=== PATIENT | female | born 1965 | race African-American/Black ===

== ENCOUNTER 2017-03-04 19:49 | Emergency (ER) | payer OTHER ==
[~2017-03-04] VITALS: Ht 162.6 cm; Wt 128.8 kg
[~2017-03-04 19:49] MED LIST: 5-HTP100 MG PO; ACIDOPHILUS1 EAC3 PO; ALIGN4 MG PO; AMBIEN 5 MG TABL5 M1 PO; AMOXICILLIN/POTASSIU PO; ANASPAZ0.125 MG SL; ANTACID600 MG PO; APAP500 PO; ATENOLOL 50 MG50 M1 PO; AUGMENTIN 500-1 EACH PO; BENADRYL25 MG PO; CARDIO TEA1 EACH PO; CHROMIUM PIC1000 MCG PO; CIPROFLOXACIN250 M2 PO; CO Q-10100 MG PO; CYCLOBENZAPRINE10 MG; FLAGYL 250 MG250 MG PO; FLECAINIDE ACET50 M1 PO; FLEXERIL PO; FLORANEX TABLE1 EACH PO; FOLIC ACID XTR0.8 MG PO; GUAIFENESIN-CODE5 ML PO; HYDROCHLOROTHIA25 M1 PO; HYDROXYZINE HCL25 M2 PO; IBUPROFEN 800800 M1 PO; INDOMETHACIN 2525 MG PO; KLOR-CON 1010 MEQ PO; L-LYSINE500 M1 PO; LASIX 20 MG TAB20 MG PO; LISINOPRIL10 MG PO; LOVENOX SQ; METFORMIN HCL500 MG PO; MULTIVITAMINS1 EAC7 PO; NAPROSYN500 MG PO; NORCO 5-325 TA1 EACH PO; OMEGA-3 FISH1000 M1 PO; ONDANSETRON HCL4 M2 PO; OXYCONTIN; PERCOCET 5-3251 EACH PO; PERCOCET 7.5-31 EACH PO; PRAVACHOL 20 MG20 M1 PO; PRAVACHOL40 MG PO; PRAVASTATIN SOD20 MG PO; PREDNISONE50 MG PO; PROTONIX40 MG PO; SIMETHICON CHEW80 M1 PO; THYTROPHIN PMG PO; VITAMIN B-12500 MCG PO; VITAMIN D-32000 UNIT PO; ZANTAC 150MG T150 MG PO; ZOFRAN ODT4 MG PO; ZOFRAN4 MG PO; ZOVIRAX 5% CR2 G1 TP; ZPAK PO
== END 2017-03-04 20:56 | disposition home or self-care (01) ==
LOC: ER 19:49
DX: J34.89 Other specified disorders of nose and nasal sinuses (principal); R09.81 Nasal congestion; G51.0 Bell's palsy; Z86.73 Personal history of transient ischemic attack (TIA), and cerebral infarction without residual deficits; Z86.718 Personal history of other venous thrombosis and embolism; Z85.038 Personal history of other malignant neoplasm of large intestine; I10 Essential (primary) hypertension; E11.9 Type 2 diabetes mellitus without complications; E66.9 Obesity, unspecified; Z88.1 Allergy status to other antibiotic agents; Z88.5 Allergy status to narcotic agent; Z91.048 Other nonmedicinal substance allergy status

== ENCOUNTER → 2017-03-12 | Outpatient (CLI) | payer OTHER | LOC: RAD 17:12 | DX: K59.00 Constipation, unspecified (principal) ==

== ENCOUNTER → 2017-03-16 | Outpatient (CLI) | payer OTHER | LOC: RAD 08:44 | DX: K59.00 Constipation, unspecified (principal); R10.9 Unspecified abdominal pain ==

== ENCOUNTER → 2017-06-06 | Outpatient (CLI) | payer OTHER | LOC: ULTRA 15:23 | DX: M79.89 Other specified soft tissue disorders (principal); M79.661 Pain in right lower leg ==

== ENCOUNTER → 2017-10-10 | Outpatient (CLI) | payer OTHER | LOC: CAT 06:33 | DX: N28.1 Cyst of kidney, acquired (principal); R16.1 Splenomegaly, not elsewhere classified; K57.92 Diverticulitis of intestine, part unspecified, without perforation or abscess without bleeding ==

== ENCOUNTER → 2017-12-14 | Outpatient (CLI) | payer OTHER ==
[~2017-12-14] MED LIST changes: +GLUCOTROL5 MG PO; +LEVSIN0.125 MG PO; +LIPITOR10 MG PO; +OMEPRAZOLE 20 M20 M1 PO; +PERCOCET PO; +PRADAXA150 MG PO; +PROAIR HFA8.5 GM INH; +TRAMADOL 50 MG50 MG PO; +VENTOLIN HFA 1818 GM INH; +ZOFRAN ODT4 MG DISSOLVE
== END ==
LOC: CAT 09:05
DX: N28.1 Cyst of kidney, acquired (principal); R16.1 Splenomegaly, not elsewhere classified; E77.8 Other disorders of glycoprotein metabolism; D69.6 Thrombocytopenia, unspecified; Z85.038 Personal history of other malignant neoplasm of large intestine

== ENCOUNTER → 2017-12-21 | Outpatient (CLI) | payer OTHER ==
[~2017-12-21] VITALS: Ht 165.1 cm; Wt 98.9 kg
--- NOTE | ~2017-12-21 | P ---
[facility] [place] [address] PROCEDURE REPORT Name: BORA LOCK Room #: REG [facility].#: [id number] Admission: 12/21/17 Attend Phys: Gurpreet Godfrey Discharge: Date of : 67 Report #: [id number] THIS REPORT FOR: //name// CC: Gurpreet Earl MD DATE OF SERVICE: 12/21/2017 HISTORY OF PRESENT ILLNESS: The patient is a 52-year-old female who is well known to me with previous history of colon cancer, status post resection many years ago. The patient was seen in the office on 12/04/2017 with complaints of abdominal pain. This is primarily lower, this has been ongoing for a long period of time. She underwent a CT scan of her abdomen and pelvis on 10/10/2017, which showed a normal bowel pattern. CT, however, showed the liver was somewhat small in size, the spleen was enlarged, and numerous venous structures surrounding the stomach and spleen extending to the region of the esophagus consistent with esophageal varices noted. The patient has no previous history of known liver disease. She denies any significant alcohol use. We underwent lab testing including liver function tests, which were all normal. KASI, antismooth muscle antibody, hepatitis B, hepatitis C, all negative. Ceruloplasmin was normal. Ferritin level was normal at 52. She has had no history of GI bleed. Plan is for EGD today. DESCRIPTION OF PROCEDURE: The risks and benefits of the procedure were explained to the patient, those risks including, but not limited to bleeding, perforation, the risk of sedation. She understood these risks and gave informed consent. Sedation was given using propofol per anesthesia. Next, using a standard [employer] upper endoscope, the scope was placed in the patient's mouth and advanced under direct vision through the esophagus, stomach and into the second portion of the duodenum. The larynx was normal in appearance. The upper esophagus was normal. In the mid to distal esophagus, grade 1 esophageal varices were noted. There was no stigmata of bleeding. The GE junction was normal. In the stomach, there were changes consistent with portal hypertensive gastropathy in the fundus and body. In the antrum, there was a significant gastritis with several ulcerations. These were superficial clean white based ulcers. They range in size from 3-6 mm, no active bleeding. Biopsies were obtained to rule out H. pylori. The pylorus was normal and patent. The duodenal bulb, first and second portion were all normal. The scope was then withdrawn and the procedure terminated. The patient tolerated the procedure well. IMPRESSION: 1. Gastric antral ulcerations with gastritis. [address] [address] PROCEDURE REPORT Name: BORA LOCK Room #: REG CLI Jeancarlos#: [id number] Admission: 12/21/17 Attend Phys: Gurpreet Godfrey Discharge: Date of : 67 Report #: [id number] 2. Portal hypertensive gastropathy changes. 3. Grade 1 mild esophageal varices. No stigmata of bleeding. RECOMMENDATIONS: 1. Await biopsy results. 2. We will start PPI therapy and continue Levsin on a p.r.n. basis for her intermittent abdominal pain. 3. The plan is to discuss proceeding with a liver biopsy. Thank you for allowing me to participate in her care. <ELECTRONICALLY SIGNED> By: Gurpreet Ruiz MD 12/24/17 1407 1103 1953 Gurpreet Ruiz MD /nt
--- NOTE | ~2017-12-21 | S ---
[facility] [place] [address] SURGICAL PATH RPT PROCEDURE Name: TATE CAMPOS Room #: REG [facility]#: [id number] Admission: 12/21/17 Date of : 67 Discharge: Report #: [id number] Path Case #: [id number] PATHOLOGY REPORT COLLECTION DATE: 12/21/2017 RECEIVED DATE: 12/21/2017 SUBMITTING PHYS: Dr. Gurpreet Ruiz OTHER PHYS: Charlotte Holland Dr. SPECIMEN(S) RECEIVED: A.Gastritis biopsy * * * * * * * * * * * * FINAL DIAGNOSIS: Gastritic mucosa, gastritis rule out H. pylori, endoscopic biopsy: - Moderate reactive gastropathy. - Negative for intestinal metaplasia or atrophy. - Negative for Helicobacter pylori. COMMENT: Well controlled Helicobacter pylori immunohistochemical stain performed on block A1-negative. (IUV:selene; 12/24/2017) PATHOLOGIST: Crystal Perez M.D. REPORT ELECTRONICALLY SIGNED BY: Crystal Perez M.D. DATE/TIME: 12/24/2017 13:33 * * * * * * * * * * * * GROSS PATHOLOGY: The specimen is received in formalin, labeled "Tate Campos, gastritis rule out H. pylori," and consists of 3 fragments of starks soft tissue measuring between 0.4 x 0.2 x 0.1 cm and 0.2 x 0.2 x 0.1 cm. They are entirely submitted in cassette A1. (SDY; 12/21/2017) CLINICAL HISTORY: Abdominal pain, abnormal CT scan Gastritis, gastric ulcers, esophageal varices grade 1 Rule out H. pylori INITIAL CPT CODE(S): A; 66663, 35637 Professional services performed by [email or web address] at [facility] [address] [place] [address] SURGICAL PATH RPT PROCEDURE Name: TATE CAMPOS Room #: REG KEE Arshad#: [id number] Admission: 12/21/17 Date of : 67 Discharge: Report #: [id number] Path Case #: [id number] [address], [place] [address] Technical services performed by [email or web address] at [address] [place] [address], [facility] [address] [address]. [place] [address] PHONE: [phone] DIRECTOR: Wilder Jiménez M.D. * * * END OF REPORT * * *
== END | disposition home or self-care (01) ==
LOC: GI
DX: K29.60 Other gastritis without bleeding (principal); K25.9 Gastric ulcer, unspecified as acute or chronic, without hemorrhage or perforation; K31.89 Other diseases of stomach and duodenum; I85.00 Esophageal varices without bleeding; K76.6 Portal hypertension; I10 Essential (primary) hypertension; E11.9 Type 2 diabetes mellitus without complications; E78.5 Hyperlipidemia, unspecified; G47.33 Obstructive sleep apnea (adult) (pediatric); Z85.038 Personal history of other malignant neoplasm of large intestine; Z98.0 Intestinal bypass and anastomosis status; Z98.890 Other specified postprocedural states; E66.09 Other obesity due to excess calories; Z86.73 Personal history of transient ischemic attack (TIA), and cerebral infarction without residual deficits; Z90.49 Acquired absence of other specified parts of digestive tract; Z79.899 Other long term (current) drug therapy; Z88.6 Allergy status to analgesic agent; Z88.8 Allergy status to other drugs, medicaments and biological substances; Z68.36 Body mass index [BMI] 36.0-36.9, adult
CPT/HCPCS: 62110

== ENCOUNTER 2018-01-09 05:55 | Inpatient (IN) | payer OTHER ==
[2018-01-09] VITALS (13 sets, daily range): BP systolic 99–145; BP diastolic 52–87
[~2018-01-09] VITALS: Ht 165.1 cm; Wt 103.4 kg
--- NOTE | ~2018-01-09 | HC ---
[facility] [place] [address] CONSULTATION Name: BORA LOKC Room #: 210-P [facility] IN M.R.#: [id number] Admission: 01/09/18 Attend Phys: Panda Quintero MD Discharge: 01/11/18 Date of : 67 Report #: [id number] THIS REPORT FOR: //name// CC: Gurpreet Earl MD DATE OF SERVICE: 01/10/2018 PATIENT OF: Dr. Jairo Earl, Dr. Gurpreet Ruiz, and Dr. Jamee Pelayo. CHIEF COMPLAINT: This is a very pleasant 52-year-old -[place] female whom I am asked to evaluate for symptoms of a subcapsular hematoma following liver biopsy done on 01/09/2018. The patient developed abdominal discomfort after the liver biopsy that was performed on an outpatient basis. This pain persisted and a followup CT scan of the abdomen showed development of a small subcapsular hematoma. Nonetheless, the patient was so uncomfortable, she had to be admitted to the hospital for analgesia and monitoring of her hemoglobin. Today, she is still having some abdominal discomfort, but has been able to eat. Her creatinine is noted to have risen from 0.9 on January 09 to 1.9 on January 10 , therefore she will be held overnight until we get her well hydrated and this creatinine returns to normal. PAST MEDICAL HISTORY: Significant for colon cancer in 2008 and she had that resected. She also has a history of possible prediabetes and has been on metformin for that. She has a history of thrombocytopenia and leukopenia of uncertain etiology. On recent abdominal imaging, her liver was noted to be quite small. She has never been an alcohol drinker and has no other known risk factors for possible cirrhosis. Nonetheless, further workup led to a liver biopsy, pathology of which is pending. She has a history of essential hypertension, diverticulitis, hyperlipidemia, and blood clots. PAST SURGICAL HISTORY: Significant for the colon cancer resection, she has had a cholecystectomy, surgery for a tubal , ruptured ovarian cyst and appendectomy and she had ureteral stents placed bilaterally during one of those surgeries. ALLERGIES: To MORPHINE. CURRENT MEDICATIONS: Prior to admission included tacrolimus ointment, betamethasone dipropionate topical cream 0.05%, hydroxyzine, atorvastatin, [address] [address] CONSULTATION Name: BORA LOCK Room #: 210-P [facility] IN M.R.#: [id number] Admission: 01/09/18 Attend Phys: Panda Quintero MD Discharge: 01/11/18 Date of : 67 Report #: [id number] Klor-Con, glipizide, lisinopril, Lasix, and metformin. SOCIAL HISTORY: She does not drink alcohol. She has never been a cigarette smoker. FAMILY HISTORY: Negative for colon cancer. REVIEW OF SYSTEMS: She denies any dysphagia, odynophagia, gastroesophageal reflux, hiatal hernia, peptic ulcer disease, nausea, or vomiting. She denies any hematemesis, hematochezia, or melena. She does have pain in the right upper quadrant near the site of the biopsy. She denies any change in bowel habits, but does have diarrhea, probably related to her metformin. PHYSICAL EXAMINATION: GENERAL: Reveals a well-developed, well-nourished 52-year-old -[place] female who is in some mild distress because of abdominal discomfort, but who is awake, alert, pleasant to talk and oriented x4. HEART: Rate and rhythm are regular with a normal S1 and S2. LUNGS: Clear bilaterally. Deep breath do increase her abdominal pain slightly. ABDOMEN: Soft. Bowel sounds are present in all 4 quadrants. There is no palpable organomegaly or mass. There is no tenderness to palpation except in the right upper quadrant. There is some mild tenderness to deep palpation. There is no rebound or guarding. EXTREMITIES: Warm and dry. No peripheral cyanosis, clubbing, or edema. NEUROLOGIC: She appears grossly intact without lateralizing signs, although I did not test her extensively neurologically. SIGNIFICANT LABORATORY DATA: A recent EGD done by Dr. Ruiz on 12/21/2017, revealed biopsies of the stomach that showed moderate reactive gastropathy, negative for intestinal metaplasia or atrophy, it was negative for Helicobacter pylori. Recent labs done in November of this year showed a total protein of 6.1, albumin 3.7, total bilirubin 0.9, direct bilirubin 0.22, alk phos 95, AST 30, ALT 30. Her KASI was negative and her smooth muscle antibody was normal at 11. Hepatitis C antibody was negative. Ceruloplasmin was 24.7. Ferritin was 52. Her hepatitis B surface antigen was negative. IMPRESSION: 1. Subcapsular hepatic hematoma after liver biopsy. Hemoglobin stable, dropping from 13 to 12. 2. Findings on imaging suspicious for cirrhosis with a small contracted liver and varices. The varix was seen, it was a grade 1 nonbleeding on EGD this month. 3. Elevated creatinine up from 0.9-1.9 overnight. 4. 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 5. History of diverticulitis. [facility] [place] [address] CONSULTATION Name: BORA LOCK Room #: 210-P [facility] IN M.R.#: [id number] Admission: 01/09/18 Attend Phys: Panda Quintero MD Discharge: 01/11/18 Date of : 67 Report #: [id number] 6. History of ruptured ovarian cysts. 7. Thrombocytopenia and leukopenia, probably related to her cirrhosis. 8. History of hypertension. 9. History of diverticulitis. 10. History of hyperlipidemia. 11. Type 2 diabetes mellitus. 12. She has a history of troublesome rash that has been pruritic and is being treated with topical medications. RECOMMENDATIONS: My recommendations were to monitor her hemoglobin and her creatinine closely, we will increase her fluid intake prerenal etiology to the rise in her creatinine. We will monitor intake and output. She can go home on Sunday if her hemoglobin trends or stable and her creatinine trends back down. It is recommended that she continue routine surveillance colonoscopies with Dr. Gurpreet Ruiz. We will await the pathology report from her liver biopsy. Thank you very much once again for allowing me to participate in her care. <ELECTRONICALLY SIGNED> By: Mayda Stearns DO 01/16/18 2136 0819 0913 Mayda Stearns, /nt
--- NOTE | ~2018-01-09 | S ---
[facility] [place] [address] SURGICAL PATH RPT PROCEDURE Name: TATE CAMPOS Room #: 210-P ADM IN M.R.#: [id number] Admission: 01/09/18 Date of : 67 Discharge: Report #: [id number] Path Case #: [id number] PATHOLOGY REPORT COLLECTION DATE: 01/09/2018 RECEIVED DATE: 01/09/2018 SUBMITTING PHYS: Dr. Gurpreet Ruiz OTHER PHYS: Charlotte Holland Dr. SPECIMEN(S) RECEIVED: A.Rt lobe liver bx * * * * * * * * * * * * FINAL DIAGNOSIS: "RT lobe liver BX", biopsy: - Liver tissue with mild reactive changes including mild vascular/sinusoidal congestion and mild portal chronic inflammation; no significant fibrosis, inflammation or evidence of cirrhosis, and no malignancy seen. (CLW:rick; 01/10/2018) COMMENT: Properly controlled special stains are performed. Block A1: Trichrome - highlights portal tracts, no increased fibrosis. Reticulin - intact reticulin network PAS - highlights hepatic glycogen PASD - negative for globules Iron - negative The case was co-reviewed with Dr. Crystal Perez. Clinical correlation is recommended. (CLW:rick; 01/10/2018) PATHOLOGIST: Charley Schumacher M.D. REPORT ELECTRONICALLY SIGNED BY: Crystal Perez M.D. for Charley Schumacher M.D. DATE/TIME: 01/11/2018 10:33 * * * * * * * * * * * * GROSS PATHOLOGY: Received in formalin labeled "Tate Campos, liver BX" and consists of 4 red-brown tissue cores ranging in length from 0.5 cm-2.3 cm, each with a uniform diameter less than 0.1 cm. The specimen is entirely submitted as A1. [facility] [place] [address] SURGICAL PATH RPT PROCEDURE Name: TATE CAMPOS Room #: 210-P ADM IN M.R.#: [id number] Admission: 01/09/18 Date of : 67 Discharge: Report #: [id number] Path Case #: [id number] (RAFAEL; 01/09/2018) CLINICAL HISTORY: Small liver Colon cancer, status post sigmoid colon resection Abdominal pain, essential hypertension, diverticulitis of colon, cholelithiasis, pure hypercholesterolemia, type 2 diabetes mellitus, blood clots INITIAL CPT CODE(S): A; 27549, 39447, 57166, 21177, 75815, 59430 Professional services performed by [facility] at [address] , [place] [address] Technical services performed by [facility] at [address] [place] [address], [address], [place] [address]. [facility] [address] [address] [place] [address] PHONE: [phone] DIRECTOR: Wilder W. Tino, M.D. * * * END OF REPORT * * *
[~2018-01-09 05:55] MED LIST changes: -OMEPRAZOLE 20 M20 M1 PO; -PERCOCET PO; -PRADAXA150 MG PO; -TRAMADOL 50 MG50 MG PO; -ZOFRAN ODT4 MG DISSOLVE
[2018-01-09 08:25] LABS: HEMATOCRIT 40.3 % (37.0-47.0); HEMOGLOBIN 13.4 gm/dL (12.0-15.0); MCH 29.3 pg (26.0-34.0); MCHC 33.3 g/dL (28.0-37.0); MCV 87.8 fL (80.0-100.0); RBC 4.59 mil/uL (4.20-5.00); RDW 13.7 % (10.5-14.5); WBC 3.1 thou/uL (4.0-11.0)
[2018-01-09 08:36] LABS: CALCIUM 8.8 mg/dL (8.5-10.1); CREATININE 0.9 mg/dL (0.6-1.0); POTASSIUM 4.3 mmol/L (3.5-5.1)
[2018-01-09 08:39] LABS: INR 1.1; PROTIME 11.3 Seconds (9.3-11.4)
[2018-01-09] MEDS ORDERED: OMEPRAZOLE 20 M20 M1 PO (08:55)
[2018-01-09 16:02] LABS: HEMATOCRIT 37.4 % (37.0-47.0); HEMOGLOBIN 12.5 gm/dL (12.0-15.0); MCH 29.4 pg (26.0-34.0); MCHC 33.5 g/dL (28.0-37.0); MCV 87.9 fL (80.0-100.0); RBC 4.26 mil/uL (4.20-5.00); RDW 13.8 % (10.5-14.5); WBC 3.1 thou/uL (4.0-11.0)
[2018-01-10] VITALS (7 sets, daily range): BP systolic 110–126; BP diastolic 60–77
[2018-01-10 06:56] LABS: HEMATOCRIT 37.2 % (37.0-47.0); HEMOGLOBIN 12.3 gm/dL (12.0-15.0); MCH 29.4 pg (26.0-34.0); RBC 4.18 mil/uL (4.20-5.00); WBC 7.2 thou/uL (4.0-11.0)
[2018-01-10 07:11] LABS: CALCIUM 8.4 mg/dL (8.5-10.1); MAGNESIUM 1.9 mg/dL (1.8-2.4); POTASSIUM 4.5 mmol/L (3.5-5.1)
[2018-01-10 07:13] LABS: CREATININE 1.9 mg/dL (0.6-1.0)
[2018-01-11 04:30] VITALS: BP 125/65
[2018-01-11 06:36] LABS: HEMATOCRIT 33.4 % (37.0-47.0); MCH 29.3 pg (26.0-34.0); MCHC 32.9 g/dL (28.0-37.0); RBC 3.75 mil/uL (4.20-5.00); WBC 3.3 thou/uL (4.0-11.0)
[2018-01-11 06:39] LABS: CALCIUM 7.7 mg/dL (8.5-10.1); CREATININE 0.9 mg/dL (0.6-1.0); MAGNESIUM 1.9 mg/dL (1.8-2.4); POTASSIUM 4.6 mmol/L (3.5-5.1)
[2018-01-11 08:08] VITALS: BP 119/63
[2018-01-11 11:17] VITALS: BP 14/62
[2018-01-11] MEDS ORDERED: PERCOCET PO (15:16)
[2018-01-11 15:24] VITALS: BP 14/62
[2018-01-11 15:32] VITALS: BP 142/84
== END 2018-01-11 17:45 | disposition home or self-care (01) | DRG 441 ==
LOC: ULTRA 05:55 → 2N 15:10 → ENTRNSPT 01-11 17:39 → 2N 01-11 17:45
PROVIDERS: Internal Medicine; Radiology Diagnostic Radiology; Specialist
PROC: 0FB13ZX Excision of Right Lobe Liver, Percutaneous Approach, Diagnostic (ICD-10-PCS; principal; 2018-01-09)
DX: K76.6 Portal hypertension (principal); N17.0 Acute kidney failure with tubular necrosis; S36.112A Contusion of liver, initial encounter; I10 Essential (primary) hypertension; E78.5 Hyperlipidemia, unspecified; E11.9 Type 2 diabetes mellitus without complications; E66.9 Obesity, unspecified; K21.9 Gastro-esophageal reflux disease without esophagitis; R16.1 Splenomegaly, not elsewhere classified; D69.6 Thrombocytopenia, unspecified; X58.XXXA Exposure to other specified factors, initial encounter; Z93.3 Colostomy status; Z85.038 Personal history of other malignant neoplasm of large intestine; Z90.49 Acquired absence of other specified parts of digestive tract; Z88.5 Allergy status to narcotic agent; Z88.1 Allergy status to other antibiotic agents; Y93.89 Activity, other specified; Y92.89 Other specified places as the place of occurrence of the external cause; Y99.8 Other external cause status; Z86.73 Personal history of transient ischemic attack (TIA), and cerebral infarction without residual deficits
CPT/HCPCS: 10081

== ENCOUNTER 2018-01-13 16:57 | Inpatient (IN) | payer OTHER ==
[~2018-01-13] VITALS: Ht 165.1 cm; Wt 133.8 kg
--- NOTE | ~2018-01-13 | 2DMMODE ---
[facility] [address] [place] [address] 2 D/M-MODE ECHOCARDIOGRAM Name: BORA LOCK Room #: 438-P ADM IN M.R.#: [id number] Admission: 01/13/18 Attend Phys: Kostas Quijano MD Discharge: Date of : 67 Date of Service: 01/15/18 1225 Report #: [id number] THIS REPORT FOR: //name// APPROVED REPORT Study performed: 01/15/2018 11:09:14 EXAM: Comprehensive 2D, Doppler, and color-flow Echocardiogram Patient Location: Echo lab Room #: [facility] Status: routine BSA: 2.35 HR: 52 bpm BP: 144/77 mmHg Rhythm: NSR Other Information Study Quality: Good Indications Short of breath, flank pain. Hx: CVA, HTN, HLP, DM, morbid obesity. 2D Dimensions RVDd: 41.17 mm LVEF(%): 71.56 (>50%) IVSd: 10.01 (7-11mm) LVOT Diam: 19.84 (18-24mm) LVDd: 52.67 mm PWd: 9.68 (7-11mm) Ascending Ao: 28.10 (22-36mm) LVDs: 31.01 (25-40mm) Aortic Root: 31.34 mm Morgan's LVEF: 71.56 % Volumes Left Atrial Volume (Systole) Single Plane 4CH: 75.70 mL Single Plane 2CH: 81.63 mL LA ESV Index: 37.00 mL/m2 Aortic Valve AoV Peak Giovanni.: 2.06 m/s AO Peak Gr.: 17.06 mmHg LVOT Max P.97 mmHg LVOT Max V: 1.73 m/s JUNE Vmax: 2.59 cm2 Mitral Valve E/A Ratio: 1.3 [facility] [place] [address] 2 D/M-MODE ECHOCARDIOGRAM Name: BORA LOCK VENKAT Room #: 438-P [facility] IN M.R.#: [id number] Admission: 01/13/18 Attend Phys: Kostas Quijano MD Discharge: Date of : 67 Date of Service: 01/15/18 1225 Report #: [id number] MV Decel. Time: 199.55 ms MV E Max Giovanni.: 1.05 m/s MV A Giovanni.: 0.79 m/s MV PHT: 57.87 ms IVRT: 64.59 ms Pulmonary Valve PV Peak Giovanni.: 1.26 m/s PV Peak Gr.: 6.31 mmHg Pulmonary Vein P Vein S: 0.85 m/s P Vein A: 0.43 m/s P Vein D: 0.59 m/s P Vein A Dur.: 147.6 msec P Vein S/D Ratio: 1.44 Tricuspid Valve TR Peak Giovanni.: 2.95 m/s RAP Estimate: 10.00 mmHg TR Peak Gr.: 34.83 mmHg PA Pressure: 45.00 mmHg Left Ventricle The left ventricle is normal size. There is normal LV segmental wall motion. There is normal left ventricular wall thickness. Left ventricular systolic function is normal. LVEF is 60-65%. The left ventricular diastolic function is normal. Right Ventricle The right ventricle is normal size. The right ventricular systolic function is normal. Atria Left atrium is mildly dilated. Right atrium is mildly dilated. Aortic Valve The aortic valve is normal in structure. No aortic regurgitation is present. There is no aortic valvular stenosis. Mitral Valve The mitral valve is normal in structure. Trace mitral regurgitation. No evidence of mitral valve stenosis. Tricuspid Valve The tricuspid valve is normal in structure. Mild to moderate tricuspid regurgitation. Estimated PAP is 44mmHg. Pulmonic Valve [address] [place] [address] 2 D/M-MODE ECHOCARDIOGRAM Name: BORA LOCK Room #: 438-P [facility] IN M.R.#: [id number] Admission: 01/13/18 Attend Phys: Kostas Quijano MD Discharge: Date of : 67 Date of Service: 01/15/18 1225 Report #: [id number] The pulmonary valve is normal in structure. Trace pulmonic regurgitation. Great Vessels The aortic root is normal in size. The ascending aorta is normal in size. IVC is dilated and collapses >50% with inspiration. Pericardium There is no pericardial effusion. <Conclusion> The left ventricle is normal size. There is normal left ventricular wall thickness. Left ventricular systolic function is normal. The left ventricular diastolic function is normal. The right ventricle is normal size. Left atrium is mildly dilated. The aortic valve is normal in structure. Trace mitral regurgitation. Mild to moderate tricuspid regurgitation. Estimated PAP is 44mmHg. There is no pericardial effusion. <ELECTRONICALLY SIGNED> By: Raoul Machado MD 01/15/18 1225 1225 1225 Raoul Machado MD /INF
--- NOTE | ~2018-01-13 | HC ---
[facility] [place] [address] CONSULTATION Name: BORA LOCK Room #: 438-P [facility] IN M.R.#: [id number] Admission: 01/13/18 Attend Phys: Kostas Quijano MD Discharge: 01/22/18 Date of : 67 Report #: [id number] THIS REPORT FOR: //name// CC: Hal Earl REASON FOR CONSULTATION: Cardiomegaly. HISTORY OF PRESENT ILLNESS: The patient is a 52-year-old with a history of possible liver issues and some history of portal hypertension and esophageal varices who recently underwent a liver biopsy and presented with worsening abdominal pain due to hematoma related to the biopsy. A chest x-ray showed enlarged cardiac silhouette and we were asked to evaluate for possible congestive heart failure. The patient denies any problems with chest pain or chest tightness. She does have some pain when she takes a breath, but this is related to her current hematoma. She denies any shortness of breath. She denies PND or orthopnea. She denies presyncope or syncope. REVIEW OF SYSTEMS: A 12-point review of systems was performed. GENERAL: No fevers or chills. HEENT: No blurred vision. CARDIOVASCULAR: As above. PULMONARY: No productive cough, but did have a PE in the past. GASTROINTESTINAL: As mentioned above, multiple issues being evaluated. GENITOURINARY: No dysuria. MUSCULOSKELETAL: No myalgias or arthralgias. ENDOCRINE: No heat or cold intolerance. NEUROLOGIC: No focal weakness. PAST MEDICAL HISTORY: 1. Diabetes. 2. Hypertension. 3. Hyperlipidemia. 4. DVT, PE in November 2008. 5. Prior cerebrovascular accidents. 6. Gastritis. 7. Obstructive sleep apnea. 8. Portal hypertension. 9. Esophageal varices. SOCIAL HISTORY: Does not smoke. FAMILY HISTORY: Significant for cirrhosis. ALLERGIES: MORPHINE, CIPRO, AND TAPE. [facility] [address] [place] [address] CONSULTATION Name: BORA LOCK Room #: 438-[facility] IN [facility].#: [id number] Admission: 01/13/18 Attend Phys: Kostas Quijano MD Discharge: 01/22/18 Date of : 67 Report #: [id number] PHYSICAL EXAMINATION: VITAL SIGNS: Temperature is 37.0, pulse 64, respiration 18, blood pressure 144/77, sats are 93%. GENERAL: She is in no acute distress. HEENT: Oropharynx is clear. NECK: Supple, with no thyromegaly. HEART: Regular rate and rhythm with no murmurs, rubs, gallops. She does not have elevated jugular venous pressure. LUNGS: Clear to auscultation bilaterally. ABDOMEN: Soft, nontender, nondistended with no hepatosplenomegaly. EXTREMITIES: There is no clubbing, cyanosis, edema. NEUROLOGICAL: Cranial nerves 2-12 are intact. LABORATORY DATA: White count is 3.6, hemoglobin 11.3, platelets are 64. Her sodium is 138, potassium 3.7, BUN 14, creatinine 0.8. AST is 40. Total bilirubin is 1.6. An echocardiogram shows an EF of 60-65%, normal RV size and function, no significant valvular disease. No evidence of pulmonary hypertension. ASSESSMENT AND PLAN: In summary, the patient is a 52-year-old admitted with hematoma related to liver biopsy. Her echocardiogram shows normal LV size and function and there is no evidence of any significant pulmonary hypertension. As the patient has no significant cardiovascular complaints, I do not think further cardiovascular workup is required. Please call us with any further questions. We will sign off. <ELECTRONICALLY SIGNED> By: Lobito Sanchez MD 02/01/18 1751 1721 2217 Lobito Sanchez MD /nt
--- NOTE | ~2018-01-13 | HC ---
[facility] [place] [address] CONSULTATION Name: BORA LOCK Room #: 438-P [facility] IN M.R.#: [id number] Admission: 01/13/18 Attend Phys: Kostas Quijano MD Discharge: Date of : 67 Report #: [id number] THIS REPORT FOR: //name// CC: Hal Earl DATE OF SERVICE: 01/18/2018 HISTORY OF PRESENT ILLNESS: This is a patient who is well known to me from an earlier treatment for a Payton's C adenocarcinoma of the colon dating to 2008. She is seen today in consultation regarding pancytopenia. She has been readmitted to the hospital with abdominal pain following an earlier liver biopsy. Liver biopsy was performed in evaluation of esophageal varices and splenomegaly with suspected underlying occult liver disease, but was not diagnostic. Her cancer history again dated to 2008 and postoperatively, she received modified FOLFOX6 chemotherapy as an adjuvant. She has been noted to have pancytopenia dating back to even prior to her receiving chemotherapy with a white count recently of 2400 when seen as an outpatient on 12/10/2017 and platelet count of 80,000 and hemoglobin of 12.7 grams. Her white count in 2012 was 3800 with platelets of 99,000. This has not been associated with any B symptoms or infections. She has had no untoward bleeding or bruising until the hematoma following a recent liver biopsy. REVIEW OF SYSTEMS: Negative. PAST MEDICAL HISTORY: Also positive for medically managed hypertension and hyperlipidemia. She is diabetic. She had previous DVT and pulmonary embolism in 11/2008. She had prior cerebrovascular accident. She has obstructive sleep apnea along with her obesity. SOCIAL HISTORY: She is a nonsmoker. FAMILY HISTORY: Positive for cirrhosis. ALLERGIES: SHE IS ALLERGIC TO MORPHINE, CIPRO AND ADHESIVE TAPE. PHYSICAL EXAMINATION: GENERAL: Shows her to be alert. She is currently afebrile with blood pressure 140/75. HEENT: Mouth shows no petechiae. NECK: Supple. CHEST: Chest is clear. [facility] [address] [place] [address] CONSULTATION Name: BORA LOCK Room #: [address] [place] [address] IN M.R.#: [id number] Admission: 01/13/18 Attend Phys: Kostas Quijano MD Discharge: Date of : 67 Report #: [id number] CARDIOVASCULAR: Normal S1, S2. ABDOMEN: Obese. EXTREMITIES: No clubbing, cyanosis, edema. NEUROLOGIC: No focal localizing signs. PSYCHIATRIC: Not agitated or confused. LYMPHATICS: No suspicious palpable lymphadenopathy. HOSPITAL COURSE: Laboratory studies have been reviewed and platelets have actually improved over the past few weeks. Recent CAT scan shows ongoing splenomegaly. ASSESSMENT: Pancytopenia due to hypersplenism. PLAN: I will double check on the recent liver biopsy to make sure they did iron studies, although hemochromatosis would be incredibly rare in an . She earlier had had negative collagen vascular and flow cytometry studies performed years ago as an outpatient, but has never undergone bone marrow aspiration biopsy, which could be pursued if nothing else is forthcoming. I have told her I suspect that this is chronic and stable. Thanks for asking me to be involved in her care. <ELECTRONICALLY SIGNED> By: Jamee Pelayo MD 01/21/18 1154 1115 1811 Jamee Pelayo MD /nt
[~2018-01-13 16:57] MED LIST changes: +OMEPRAZOLE 20 M20 M1 PO; +PERCOCET PO
[2018-01-13 16:59] VITALS: BP 147/69
[2018-01-13 17:42] LABS: HEMATOCRIT 36.4 % (37.0-47.0); HEMOGLOBIN 12.1 gm/dL (12.0-15.0); MCH 28.8 pg (26.0-34.0); MCHC 33.2 g/dL (28.0-37.0); MCV 86.8 fL (80.0-100.0); PLATELET COUNT 51 thou/uL (150-400); RBC 4.19 mil/uL (4.20-5.00); RDW 13.8 % (10.5-14.5)
[2018-01-13 17:43] LABS: WBC 1.9 thou/uL (4.0-11.0)
[2018-01-13 17:52] LABS: CALCIUM 8.3 mg/dL (8.5-10.1); CREATININE 0.9 mg/dL (0.6-1.0); POTASSIUM 4.1 mmol/L (3.5-5.1)
[2018-01-13 18:05] LABS: DIRECT BILIRUBIN 0.5 mg/dL (<0.1-0.3); TOTAL BILIRUBIN 1.8 mg/dL (<0.1-1.0); TOTAL PROTEIN 6.5 g/dL (6.4-8.2)
[2018-01-13 18:14] LABS: ABSOLUTE NEUTROPHILS 1.2 thou/uL (1.4-8.2); ATYPICAL LYMPHS 2 %
[2018-01-13 18:16] LABS: PLATELET ESTIMATE DECREASED
[2018-01-13 21:22] VITALS: BP 142/71
[2018-01-13 22:43] VITALS: BP 146/70
[2018-01-14 03:29] LABS: URINE BILIRUBIN 1+ (Negative); URINE BLOOD TRACE (Negative); URINE CLARITY CLEAR; URINE COLOR YELLOW; URINE GLUCOSE-RANDOM* NEGATIVE (Negative); URINE KETONES 1+ (Negative); URINE LEUKOCYTES NEGATIVE (Negative); URINE NITRITE NEGATIVE (Negative); URINE PROTEIN (DIPSTICK) NEGATIVE (Negative)
[2018-01-14 03:33] LABS: ICTOTEST (BILI CONFIRMATORY) Positive (Negative)
[2018-01-14 04:00] LABS: SQUAMOUS 4-10 Moderate /LPF (0-3)
[2018-01-14 04:01] LABS: BACTERIA None Seen /HPF (None Seen); CASTS None Seen /LPF (None Seen); CRYSTALS None Seen /LPF (None Seen); MUCUS None Seen strn/LPF (None Seen); URINE RBC 0-2 Rare /HPF (0-2); URINE WBC None Seen /HPF (0-5)
[2018-01-14 04:47] VITALS: BP 126/60
[2018-01-14 06:36] LABS: HEMATOCRIT 34.2 % (37.0-47.0); HEMOGLOBIN 11.5 gm/dL (12.0-15.0); MCH 29.3 pg (26.0-34.0); MCHC 33.7 g/dL (28.0-37.0); MCV 86.8 fL (80.0-100.0); RBC 3.94 mil/uL (4.20-5.00); RDW 13.7 % (10.5-14.5)
[2018-01-14 06:45] LABS: CREATININE 0.9 mg/dL (0.6-1.0); POTASSIUM 3.7 mmol/L (3.5-5.1)
[2018-01-14 06:54] LABS: WBC 2.2 thou/uL (4.0-11.0)
[2018-01-14 07:35] VITALS: BP 135/66
[2018-01-14 15:36] VITALS: BP 133/85
[2018-01-14 20:43] VITALS: BP 132/69
[2018-01-15 05:43] LABS: HEMATOCRIT 34.1 % (37.0-47.0); HEMOGLOBIN 11.3 gm/dL (12.0-15.0); MCH 29.1 pg (26.0-34.0); MCHC 33.2 g/dL (28.0-37.0); MCV 87.7 fL (80.0-100.0); RBC 3.89 mil/uL (4.20-5.00); RDW 13.8 % (10.5-14.5); WBC 3.6 thou/uL (4.0-11.0)
[2018-01-15 06:03] LABS: ALBUMIN 2.9 g/dL (3.4-5.0); CALCIUM 8.1 mg/dL (8.5-10.1); CREATININE 0.8 mg/dL (0.6-1.0); POTASSIUM 3.7 mmol/L (3.5-5.1); TOTAL BILIRUBIN 1.6 mg/dL (<0.1-1.0); TOTAL PROTEIN 6.2 g/dL (6.4-8.2)
[2018-01-15 08:04] VITALS: BP 144/77
[2018-01-15 20:30] VITALS: BP 134/79
[2018-01-16 04:00] VITALS: BP 125/75
[2018-01-16 05:48] LABS: HEMATOCRIT 33.5 % (37.0-47.0); HEMOGLOBIN 11.3 gm/dL (12.0-15.0); MCH 29.2 pg (26.0-34.0); MCHC 33.8 g/dL (28.0-37.0); MCV 86.4 fL (80.0-100.0); PLATELET COUNT 68 thou/uL (150-400); RBC 3.87 mil/uL (4.20-5.00); RDW 13.3 % (10.5-14.5); WBC 2.2 thou/uL (4.0-11.0)
[2018-01-16 06:17] LABS: ALBUMIN 2.6 g/dL (3.4-5.0); CALCIUM 8.1 mg/dL (8.5-10.1); CREATININE 0.7 mg/dL (0.6-1.0); DIRECT BILIRUBIN 0.6 mg/dL (<0.1-0.3); POTASSIUM 3.9 mmol/L (3.5-5.1); TOTAL BILIRUBIN 1.7 mg/dL (<0.1-1.0); TOTAL PROTEIN 5.9 g/dL (6.4-8.2)
[2018-01-16 07:30] VITALS: BP 146/84
[2018-01-16 08:00] LABS: ABSOLUTE NEUTROPHILS 1.7 thou/uL (1.4-8.2); METAMYELOCYTES 2 %
[2018-01-16 08:01] LABS: ANISOCYTOSIS SLIGHT
[2018-01-16 16:40] VITALS: BP 153/86
[2018-01-17 03:43] VITALS: BP 140/83
[2018-01-17 05:28] LABS: HEMATOCRIT 33.9 % (37.0-47.0); HEMOGLOBIN 11.3 gm/dL (12.0-15.0); MCH 28.9 pg (26.0-34.0); MCHC 33.4 g/dL (28.0-37.0); MCV 86.6 fL (80.0-100.0); RBC 3.91 mil/uL (4.20-5.00); RDW 13.6 % (10.5-14.5); WBC 2.2 thou/uL (4.0-11.0)
[2018-01-17 05:48] LABS: CALCIUM 8.3 mg/dL (8.5-10.1); CREATININE 0.7 mg/dL (0.6-1.0); POTASSIUM 3.7 mmol/L (3.5-5.1)
[2018-01-17 08:31] VITALS: BP 124/64
[2018-01-17 09:27] LABS: ABSOLUTE NEUTROPHILS 1.3 thou/uL (1.4-8.2); PLATELET COUNT 76 thou/uL (150-400); PLATELET ESTIMATE DECREASED
[2018-01-17 16:38] VITALS: BP 179/80
[2018-01-17 19:46] VITALS: BP 145/94
[2018-01-18 03:35] VITALS: BP 141/72
[2018-01-18 05:23] LABS: HEMOGLOBIN 11.1 gm/dL (12.0-15.0); MCH 29.3 pg (26.0-34.0); MCHC 33.6 g/dL (28.0-37.0); PLATELET COUNT 78 thou/uL (150-400); RBC 3.79 mil/uL (4.20-5.00); RDW 13.7 % (10.5-14.5); WBC 2.3 thou/uL (4.0-11.0)
[2018-01-18 05:35] LABS: ALBUMIN 2.6 g/dL (3.4-5.0); CALCIUM 8.3 mg/dL (8.5-10.1); CREATININE 0.8 mg/dL (0.6-1.0); POTASSIUM 3.6 mmol/L (3.5-5.1); TOTAL BILIRUBIN 1.6 mg/dL (<0.1-1.0); TOTAL PROTEIN 5.8 g/dL (6.4-8.2)
[2018-01-18 06:45] LABS: ABSOLUTE NEUTROPHILS 1.5 thou/uL (1.4-8.2)
[2018-01-18 08:00] VITALS: BP 155/99
[2018-01-18 16:00] VITALS: BP 152/86
[2018-01-19 03:42] VITALS: BP 115/59
[2018-01-19 08:49] VITALS: BP 145/76
[2018-01-19 16:47] VITALS: BP 147/73
[2018-01-19 19:46] VITALS: BP 132/85
[2018-01-20 04:22] VITALS: BP 113/73
[2018-01-20 05:14] LABS: HEMATOCRIT 33.7 % (37.0-47.0); HEMOGLOBIN 11.3 gm/dL (12.0-15.0); MCH 29.3 pg (26.0-34.0); MCHC 33.6 g/dL (28.0-37.0); MCV 87.2 fL (80.0-100.0); PLATELET COUNT 94 thou/uL (150-400); RBC 3.87 mil/uL (4.20-5.00); WBC 3.2 thou/uL (4.0-11.0)
[2018-01-20 05:29] LABS: CALCIUM 8.5 mg/dL (8.5-10.1); CREATININE 0.8 mg/dL (0.6-1.0); POTASSIUM 3.5 mmol/L (3.5-5.1)
[2018-01-20 05:50] LABS: ATYPICAL LYMPHS 1 %; PLATELET ESTIMATE DECREASED
[2018-01-20 05:51] LABS: LARGE PLATELETS FEW
[2018-01-20 08:00] VITALS: BP 128/82
[2018-01-20 16:00] VITALS: BP 156/91
[2018-01-20 20:22] VITALS: BP 170/94
[2018-01-21 00:24] VITALS: BP 116/51
[2018-01-21 03:58] VITALS: BP 110/59
[2018-01-21 07:45] VITALS: BP 124/77
[2018-01-21 16:02] VITALS: BP 132/75
[2018-01-21 20:02] VITALS: BP 123/72
[2018-01-22 03:35] VITALS: BP 123/70
[2018-01-22 04:08] LABS: HEMATOCRIT 32.8 % (37.0-47.0); HEMOGLOBIN 11.1 gm/dL (12.0-15.0); MCH 29.5 pg (26.0-34.0); MCHC 33.8 g/dL (28.0-37.0); MCV 87.3 fL (80.0-100.0); PLATELET COUNT 97 thou/uL (150-400); RBC 3.76 mil/uL (4.20-5.00); WBC 2.5 thou/uL (4.0-11.0)
[2018-01-22 04:29] LABS: CALCIUM 8.5 mg/dL (8.5-10.1); CREATININE 0.9 mg/dL (0.6-1.0); POTASSIUM 3.9 mmol/L (3.5-5.1)
[2018-01-22 07:07] LABS: ABSOLUTE NEUTROPHILS 1.6 thou/uL (1.4-8.2)
[2018-01-22 08:35] VITALS: BP 131/72
[2018-01-22] MEDS ORDERED: ZOFRAN ODT4 MG DISSOLVE (09:21)
[2018-01-22] MEDS ORDERED: TRAMADOL 50 MG50 MG PO (09:21)
[2018-01-22] MEDS ORDERED: PRADAXA150 MG PO (09:22)
[2018-01-22 12:15] VITALS: BP 131/72
== END 2018-01-22 15:32 | disposition home or self-care (01) | DRG 441 ==
LOC: ER 16:57 → 4S 20:39 → EROBS 20:39 → 4S 21:26 → ENTRNSPT 01-22 14:57 → EDTRNSPTSTS 01-22 14:59 → 4S 01-22 15:32
PROVIDERS: Emergency Medicine; Family Medicine; Nurse Practitioner
DX: I81 Portal vein thrombosis (principal); K85.90 Acute pancreatitis without necrosis or infection, unspecified; E43 Unspecified severe protein-calorie malnutrition; S36.112A Contusion of liver, initial encounter; D61.818 Other pancytopenia; J90 Pleural effusion, not elsewhere classified; Z68.42 Body mass index [BMI] 45.0-49.9, adult; I10 Essential (primary) hypertension; E11.9 Type 2 diabetes mellitus without complications; E78.5 Hyperlipidemia, unspecified; G47.33 Obstructive sleep apnea (adult) (pediatric); D73.1 Hypersplenism; E66.9 Obesity, unspecified; K21.9 Gastro-esophageal reflux disease without esophagitis; K29.70 Gastritis, unspecified, without bleeding; K25.9 Gastric ulcer, unspecified as acute or chronic, without hemorrhage or perforation; I47.9 Paroxysmal tachycardia, unspecified; X58.XXXA Exposure to other specified factors, initial encounter; Z86.73 Personal history of transient ischemic attack (TIA), and cerebral infarction without residual deficits; Z86.718 Personal history of other venous thrombosis and embolism; Z86.711 Personal history of pulmonary embolism; Z85.038 Personal history of other malignant neoplasm of large intestine; Z93.3 Colostomy status; Z90.49 Acquired absence of other specified parts of digestive tract; Z88.6 Allergy status to analgesic agent; Z88.8 Allergy status to other drugs, medicaments and biological substances; Z83.79 Family history of other diseases of the digestive system; Z87.11 Personal history of peptic ulcer disease; Y93.89 Activity, other specified; Y92.89 Other specified places as the place of occurrence of the external cause; Y99.8 Other external cause status; Z79.899 Other long term (current) drug therapy
CPT/HCPCS: 10195

== ENCOUNTER → 2018-02-28 | Outpatient (CLI) | payer OTHER ==
[~2018-02-28] MED LIST changes: +PRADAXA150 MG PO; +TRAMADOL 50 MG50 MG PO; +ZOFRAN ODT4 MG DISSOLVE
== END ==
LOC: ULTRA 06:31
DX: M79.604 Pain in right leg (principal); M79.89 Other specified soft tissue disorders

== ENCOUNTER → 2018-06-03 | Outpatient (CLI) | payer OTHER | LOC: ULTRA 16:07 | DX: M79.89 Other specified soft tissue disorders (principal) ==

== ENCOUNTER 2018-09-30 18:21 | Emergency (ER) | payer OTHER ==
[~2018-09-30] VITALS: Ht 165.1 cm; Wt 98.4 kg
[2018-09-30 19:10] LABS: URINE BILIRUBIN NEGATIVE (Negative); URINE BLOOD TRACE (Negative); URINE CLARITY SL CLOUDY; URINE COLOR YELLOW; URINE GLUCOSE-RANDOM* NEGATIVE (Negative); URINE KETONES NEGATIVE (Negative); URINE NITRITE-REFLEX NEGATIVE (Negative); URINE PROTEIN (DIPSTICK) NEGATIVE (Negative); URINE SPECIFIC GRAVITY 1.025 (1.005-1.035); URINE UROBILINOGEN 0.2 E.U./dl (0.2-1.0)
[2018-09-30 19:16] LABS: URINE LEUKOCYTES-REFLEX 3+ (Negative)
[2018-09-30 19:23] LABS: CASTS None Seen /LPF (None Seen); CRYSTALS None Seen /LPF (None Seen); SQUAMOUS 4-10 Moderate /LPF (0-3); URINE RBC 0-2 Rare /HPF (0-2); URINE WBC-REFLEX >25 Many /HPF (0-5)
[2018-09-30 19:40] LABS: HEMATOCRIT 35.1 % (37.0-47.0); HEMOGLOBIN 11.8 gm/dL (12.0-15.0); MCH 29.3 pg (26.0-34.0); MCHC 33.7 g/dL (28.0-37.0); MCV 86.8 fL (80.0-100.0); RBC 4.04 mil/uL (4.20-5.00); RDW 14.3 % (10.5-14.5); WBC 2.8 thou/uL (4.0-11.0)
[2018-09-30 19:49] LABS: CALCIUM 9.2 mg/dL (8.5-10.1); CREATININE 0.9 mg/dL (0.6-1.0); POTASSIUM 3.8 mmol/L (3.5-5.1)
[2018-09-30 20:06] LABS: ALBUMIN 3.1 g/dL (3.4-5.0); DIRECT BILIRUBIN 0.2 mg/dL (<0.1-0.3); TOTAL BILIRUBIN 0.9 mg/dL (<0.1-1.0); TOTAL PROTEIN 6.8 g/dL (6.4-8.2)
[2018-09-30 20:07] LABS: ABSOLUTE NEUTROPHILS 1.8 thou/uL (1.4-8.2)
[2018-09-30 20:09] LABS: PLATELET ESTIMATE DECREASED
[2018-09-30 20:13] LABS: PLATELET COUNT 71 thou/uL (150-400)
[2018-09-30] MEDS ORDERED: GLUCOTROL5 MG PO (20:35)
[2018-09-30] MEDS ORDERED: CARAFATE 1 GM TA1 G1 PO (22:19)
[2018-09-30 22:52] VITALS: BP 142/69
== END 2018-09-30 22:53 | disposition home or self-care (01) ==
LOC: ER 18:21
PROVIDERS: Emergency Medicine
DX: K29.70 Gastritis, unspecified, without bleeding (principal); I10 Essential (primary) hypertension; E11.9 Type 2 diabetes mellitus without complications; E78.5 Hyperlipidemia, unspecified; G47.30 Sleep apnea, unspecified; G51.0 Bell's palsy; K76.6 Portal hypertension; K31.89 Other diseases of stomach and duodenum; Z86.73 Personal history of transient ischemic attack (TIA), and cerebral infarction without residual deficits; Z85.038 Personal history of other malignant neoplasm of large intestine; Z88.1 Allergy status to other antibiotic agents; Z88.5 Allergy status to narcotic agent; Z88.8 Allergy status to other drugs, medicaments and biological substances; Z79.899 Other long term (current) drug therapy

== ENCOUNTER 2019-03-05 18:25 | Emergency (ER) | payer OTHER ==
[~2019-03-05] VITALS: Ht 165.1 cm; Wt 124.3 kg
[~2019-03-05 18:25] MED LIST changes: +CARAFATE 1 GM TA1 G1 PO
[2019-03-05 19:31] LABS: BASOPHILS 0.7 % (0.0-2.0); EOSINOPHILS 2.9 % (0.0-3.0); HEMATOCRIT 38.8 % (37.0-47.0); HEMOGLOBIN 12.9 gm/dL (12.0-15.0); LYMPHOCYTES 26.8 % (24.0-44.0); MCH 28.8 pg (26.0-34.0); MCHC 33.2 g/dL (28.0-37.0); MCV 86.7 fL (80.0-100.0); MONOCYTES 10.1 % (1.0-8.0); POLYS 59.5 % (36.0-66.0); RBC 4.48 mil/uL (4.20-5.00); RDW 14.4 % (10.5-14.5); WBC 3.3 thou/uL (4.0-11.0)
[2019-03-05 19:39] LABS: CALCIUM 9.6 mg/dL (8.5-10.1); CREATININE 0.9 mg/dL (0.6-1.0); POTASSIUM 3.8 mmol/L (3.5-5.1)
[2019-03-05 19:45] LABS: ALBUMIN 3.6 g/dL (3.4-5.0); DIRECT BILIRUBIN 0.3 mg/dL (<0.1-0.3); TOTAL BILIRUBIN 1.2 mg/dL (<0.1-1.0); TOTAL PROTEIN 7.6 g/dL (6.4-8.2)
[2019-03-05 20:07] LABS: URINE BILIRUBIN NEGATIVE (Negative); URINE BLOOD NEGATIVE (Negative); URINE CLARITY CLEAR; URINE COLOR YELLOW; URINE GLUCOSE-RANDOM* NEGATIVE (Negative); URINE KETONES NEGATIVE (Negative); URINE LEUKOCYTES-REFLEX NEGATIVE (Negative); URINE NITRITE-REFLEX NEGATIVE (Negative); URINE PROTEIN (DIPSTICK) TRACE (Negative); URINE SPECIFIC GRAVITY 1.025 (1.005-1.035); URINE UROBILINOGEN 0.2 E.U./dl (0.2-1.0)
[2019-03-05 20:09] LABS: PLATELET COUNT 96 thou/uL (150-400)
[2019-03-05] MEDS ORDERED: PRILOSEC 20 MG20 MG PO (20:57)
[2019-03-05] MEDS ORDERED: CARAFATE 1 GM TA1 G1 PO (21:01)
[2019-03-05 21:18] VITALS: BP 143/75
== END 2019-03-05 21:19 | disposition home or self-care (01) ==
LOC: ER 18:25
PROVIDERS: Emergency Medicine
DX: R10.12 Left upper quadrant pain (principal); R11.2 Nausea with vomiting, unspecified; I10 Essential (primary) hypertension; E11.9 Type 2 diabetes mellitus without complications; E78.5 Hyperlipidemia, unspecified; G47.30 Sleep apnea, unspecified; E66.9 Obesity, unspecified; Z68.42 Body mass index [BMI] 45.0-49.9, adult; Z88.1 Allergy status to other antibiotic agents; Z88.5 Allergy status to narcotic agent; Z88.8 Allergy status to other drugs, medicaments and biological substances; Z98.890 Other specified postprocedural states; Z86.73 Personal history of transient ischemic attack (TIA), and cerebral infarction without residual deficits; Z86.718 Personal history of other venous thrombosis and embolism; Z90.49 Acquired absence of other specified parts of digestive tract; Z85.038 Personal history of other malignant neoplasm of large intestine

== ENCOUNTER → 2019-03-26 | Outpatient (CLI) | payer OTHER ==
[~2019-03-26] MED LIST changes: +PRILOSEC 20 MG20 MG PO
== END ==
LOC: NUC 09:18
DX: E11.43 Type 2 diabetes mellitus with diabetic autonomic (poly)neuropathy (principal); K31.84 Gastroparesis; Z79.84 Long term (current) use of oral hypoglycemic drugs

== ENCOUNTER → 2021-02-04 | Outpatient (CLI) | payer OTHER | LOC: LAB 13:47 | PROVIDERS: ATTEND Neuromusculoskeletal Medicine & OMM | DX: U07.1 COVID-19 (principal) ==

== ENCOUNTER 2021-02-07 10:59 | Inpatient (IN) | payer OTHER ==
[~2021-02-07] VITALS: Ht 165.1 cm; Wt 144.7 kg
[2021-02-07 11:07] VITALS: BP 159/94
[2021-02-07] MEDS ORDERED: TRAMADOL 50 MG50 MG PO (11:13)
[2021-02-07] MEDS ORDERED: HYDROCODON-ACE1 EAC7 PO (11:13)
[2021-02-07 12:44] LABS: HEMATOCRIT 36.1 % (37.0-47.0); HEMOGLOBIN 11.8 gm/dL (12.0-15.0); MCHC 32.7 g/dL (28.0-37.0); MCV 88.5 fL (80.0-100.0); RBC 4.08 mil/uL (4.20-5.00)
[2021-02-07 12:45] LABS: CALCIUM 7.9 mg/dL (8.5-10.1); CREATININE 1.1 mg/dL (0.6-1.0); POTASSIUM 3.8 mmol/L (3.5-5.1)
[2021-02-07 12:46] LABS: RDW 14.2 % (10.5-14.5)
[2021-02-07 12:49] LABS: APTT 29.2 Seconds (24.5-32.8); INR 1.1; PROTIME 12.4 Seconds (9.3-11.4)
[2021-02-07 12:50] LABS: WBC 1.3 thou/uL (4.0-11.0)
[2021-02-07 12:52] LABS: ALBUMIN 2.8 g/dL (3.4-5.0); TOTAL BILIRUBIN 1.4 mg/dL (0.2-1.0); TOTAL PROTEIN 6.5 g/dL (6.4-8.2)
[2021-02-07 13:03] LABS: URINE BILIRUBIN 2+ (Negative); URINE BLOOD 3+ (Negative); URINE CLARITY CLEAR; URINE COLOR YELLOW; URINE GLUCOSE-RANDOM* NEGATIVE (Negative); URINE KETONES 1+ (Negative); URINE LEUKOCYTES-REFLEX 1+ (Negative); URINE NITRITE-REFLEX NEGATIVE (Negative); URINE PROTEIN (DIPSTICK) 2+ (Negative); URINE SPECIFIC GRAVITY >= 1.030 (1.005-1.035)
[2021-02-07 13:15] LABS: MUCUS 4-6 Moderate strn/LPF (None Seen); SQUAMOUS >10 Many /LPF (0-3)
[2021-02-07 13:15] LABS: ABSOLUTE NEUTROPHILS 0.8 thou/uL (1.4-8.2); PLATELET COUNT 42 thou/uL (150-400)
[2021-02-07 13:16] LABS: CASTS None Seen /LPF (None Seen); CRYSTALS None Seen /LPF (None Seen); URINE RBC 3-10 Few /HPF (0-2); URINE WBC-REFLEX 6-15 Few /HPF (0-5)
[2021-02-07 13:17] LABS: LARGE PLATELETS RARE
[2021-02-07 18:32] VITALS: BP 143/65
--- NOTE | 2021-02-07 18:46 | NUR ---
WAS NOTIFIED THAT ROOM IS NOT CLEANED DURING REPORT. WAS NOTIFIED BY [place] THAT SHE WOULD CALL WHEN ROOM BECAME CLEAN.
[2021-02-07 20:07] VITALS: BP 101/59
[2021-02-07 20:28] VITALS: BP 152/78
[2021-02-07 23:50] VITALS: BP 113/68
--- NOTE | 2021-02-08 05:01 | NUR ---
Admission history and assessments completed. Careplan initiated. IVFluids infusing. Gait steady up to BSC. Vital signs stable, Bradycardic but asymptomatic. COVID positive 02/04/21. Enhanced precautions in place.
[2021-02-08 05:26] LABS: HEMATOCRIT 36.7 % (37.0-47.0); MCHC 32.3 g/dL (28.0-37.0)
[2021-02-08 05:28] LABS: HEMOGLOBIN 11.9 gm/dL (12.0-15.0); MCH 28.4 pg (26.0-34.0); RBC 4.18 mil/uL (4.20-5.00); RDW 14.5 % (10.5-14.5)
[2021-02-08 05:31] VITALS: BP 124/71
[2021-02-08 05:46] LABS: CALCIUM 7.6 mg/dL (8.5-10.1); POTASSIUM 4.1 mmol/L (3.5-5.1)
[2021-02-08 06:15] LABS: WBC 1.7 thou/uL (4.0-11.0)
[2021-02-08 07:24] VITALS: BP 110/60
[2021-02-08 10:39] LABS: ALBUMIN 2.6 g/dL (3.4-5.0); CALCIUM 7.6 mg/dL (8.5-10.1); DIRECT BILIRUBIN 0.4 mg/dL (<0.1-0.2); PHOSPHORUS 3.5 mg/dL (2.5-4.9); POTASSIUM 4.2 mmol/L (3.5-5.1); TOTAL BILIRUBIN 1.3 mg/dL (0.2-1.0); TOTAL PROTEIN 6.4 g/dL (6.4-8.2)
--- NOTE | 2021-02-08 15:17 | NUR ---
INITIAL ASSESSMENT: Received consult. SW reviewed chart and spoke with nursing and attending physician. Pt was admitted from home due to COVID pneumonia. Pt placed in Enhanced Isolation. Pt had positive COVID test on 02/04. Pt is employed at [employer]. ID consulted. Pt is afebrile and on 2L of O2. Pt has been started on Remdesivir and Ivermectin. SW spoke with pt via phone. Introduced role of SW. Pt is alert/orientated x 4. Pt reports she lives at home. Prior to admission, pt was independent with ADLs. No hx of services or post-acute placement. Pt's PCP is Dr. Earl. Pt's plan is to discharge home when medically stable. SW is following to assist as needed with discharge planning.
[2021-02-08 15:31] VITALS: BP 120/64
--- NOTE | 2021-02-08 17:59 | NUR ---
assumed care of pt at 0700. pt alert and oriented, in no acute distress. soa w/ activity. on 2L NC. remdesivir and covid tx initiated. ivf infusing per order. afebrile. vitals stable. no other changes to report. wcm.
[2021-02-09] VITALS (16 sets, daily range): BP systolic 113–146; BP diastolic 59–79
[2021-02-09 06:00] LABS: ABSOLUTE NEUTROPHILS 2.5 thou/uL (1.4-8.2); HEMOGLOBIN 11.8 gm/dL (12.0-15.0)
[2021-02-09 06:02] LABS: BASOPHILS 0.4 % (0.0-2.0); HEMATOCRIT 36.2 % (37.0-47.0); LYMPHOCYTES 13.1 % (24.0-44.0); MCH 28.7 pg (26.0-34.0); MCHC 32.6 g/dL (28.0-37.0); MCV 87.9 fL (80.0-100.0); MONOCYTES 8.6 % (1.0-8.0); PLATELET COUNT 47 thou/uL (150-400); POLYS 77.9 % (36.0-66.0); RBC 4.12 mil/uL (4.20-5.00); RDW 14.3 % (10.5-14.5); WBC 3.3 thou/uL (4.0-11.0)
[2021-02-09 06:25] LABS: ALBUMIN 2.3 g/dL (3.4-5.0); CALCIUM 7.7 mg/dL (8.5-10.1); CREATININE 0.9 mg/dL (0.6-1.0); DIRECT BILIRUBIN 0.3 mg/dL (<0.1-0.2); PHOSPHORUS 2.4 mg/dL (2.5-4.9); POTASSIUM 4.7 mmol/L (3.5-5.1); TOTAL BILIRUBIN 0.8 mg/dL (0.2-1.0); TOTAL PROTEIN 6.1 g/dL (6.4-8.2)
[2021-02-09 07:47] LABS: BE(vivo) 0.6 mmol/L (-2 to +3); HCO3 25.2 mmol/L (22.0-26.0); PCO2 40.2 mmHg (35.0-45.0); PO2 67.2 mmHg (80.0-100.0); pH 7.415 (7.360-7.450); sO2 93.7 % (92.0-98.0)
--- NOTE | 2021-02-09 12:33 | NUR ---
assumed care of pt at 0700. increased O2 needs overnight. now on 10L NC. respirations 24-25. in mod resp distress. cxr showing worsening infiltrates. stat ABGs ordered. pulm consulted. placed on cont pulse ox. breathing treatments added. rec ICU transfer. updated dtrs over phone regarding change in pt status - understanding and agreeable. waiting on bed for transfer.
--- NOTE | 2021-02-09 13:09 | HC ---
[facility] [place] [address] CONSULTATION Name: BORA LOCK Room #: 356-P ADM IN M.R.#: [id number] Admission: 02/07/21 Attend Phys: Keren Longo MD Discharge: Date of : 67 Report #: [id number] THIS REPORT FOR: cc: Jairo Earl,Rell Wyatt MD ~ DATE OF SERVICE: 02/08/2021 INFECTIOUS DISEASE CONSULTATION ATTENDING PHYSICIAN: Dr. Longo REASON FOR EVALUATION: Pneumonitis, positive COVID-19 infection. HISTORY OF SUBJECTIVE: Chart reviewed, patient examined. This is a 55-year-old with history of previous colon cancer, who has actually had completed course and has been in remission for 5 years, had developed GI related complaints with abdominal pain associated with nausea with emesis and diarrhea. She has had some mild dyspnea, although with minimal cough, some myalgias and headaches. It is notable on 02/05 was confirmed to have a positive COVID test. Due to worsening signs and symptoms, she was admitted via a trip to the Emergency Room. She is currently on supplemental oxygen 3 liters per nasal cannula. She does admit to ongoing issues with abdominal pain. Chest x-ray did show cardiomegaly with central venous congestion, bilateral ground glass interstitial pulmonary opacities. Found to have an elevated liver function test, AST of 108, ALT of 74. White count was noted to be low at 1.3 total, H and H 11.8 and 36.1, platelets of 442. Inflammatory markers were moderately elevated. Urine culture was not indicative of growth thus far, but had moderate pyuria. She is empirically dosed with azithromycin and ceftriaxone as well as started on remdesivir. ALLERGIES: Listed to CIPRO CAUSES URTICARIA, MORPHINE, ADHESIVE TAPE. CURRENT MEDICATIONS: Include enoxaparin, hydrocodone, insulin sliding scale, zolpidem, ondansetron as needed, guaifenesin, dexamethasone, and remdesivir. PAST MEDICAL HISTORY: History of colon cancer, diabetes mellitus, sleep apnea requiring CPAP, hypertension, previous stroke, history of DVTs with PEs, history of diverticulitis. SOCIAL HISTORY: Nonsmoker, no ethanol, no illicit drug use. FAMILY HISTORY: Noncontributory. REVIEW OF SYSTEMS: Otherwise, unremarkable 10-point review of systems. [address] [address] CONSULTATION Name: BROA LOCK Room #: [address] [place] [address] IN M.R.#: [id number] Admission: 02/07/21 Attend Phys: Keren Longo MD Discharge: Date of : 67 Report #: [id number] PHYSICAL EXAMINATION: GENERAL: She is alert, cooperative, appropriate. She is in dhcw-re-kbmrsqdo distress. She is generally lucid, appears reasonably well nourished. VITAL SIGNS: Temperature 98.2, pulse 47, respirations 16, blood pressure 110/61. SKIN: Warm, dry, no rashes. HEENT: Normocephalic. Extraocular muscles intact. NECK: Supple. Nasal cannula in place. LUNGS: Bilateral scattered crackles. HEART: Regular. Borderline bradycardic. I do not appreciate a murmur. ABDOMEN: Obese, soft. There is some tenderness, although no peritoneal signs. GENITOURINARY AND RECTAL: Deferred. LABORATORY DATA: Urine culture as described above 40,000 colony forming units per mL, suggests colonization. Electrolytes: Sodium 139, potassium 4.1, chloride 104, bicarbonate 27, anion gap of 8, BUN and creatinine 13 and 1.0, glucose of 140. Ferritin 273. LDH 476. CRP of 55.4. CBC: White count of 1.7, H and H 11.9 and 36.7, platelets of 40, which was consistent with the initial CBC. Peripheral evaluation had 56% segmented neutrophils, 8% bands, ANC of 800. Previous LFTs: AST of 108, ALT of 74, alkaline phosphatase 121. Albumin of 2.8, total protein is 6.5. ASSESSMENT: 1. COVID-19 infection, complicated by pneumonitis. 2. Pancytopenia of uncertain etiology. On specific question, she is no longer on any sort of chemotherapy. Noted back in 2018 to 2019, had been leukopenic as well. Also, thrombocytopenic, so may well be chronic situation. 3. Elevated liver function tests, it is likely based on the coronavirus. We will continue directed therapy. We will add ivermectin and some vitamins. In addition, we will continue single antibacterial in the setting of the neutropenia, I doubt should be able to expectorate any sputum. We will add incentive spirometry. Continue efforts to wean off support as allowed. She remains tenuous at this point. <ELECTRONICALLY SIGNED> By: Rell Ellington MD 02/09/21 1309 1034 1140 Rell Ellington MD /nt
--- NOTE | 2021-02-09 16:24 | EKG ---
[address] [place] [address] ELECTROCARDIOGRAM REPORT Name: BORA LOCK Room #: 356-P ADM IN M.R.#: [id number] Admission: 02/07/21 Attend Phys: Keren Longo MD Discharge: Date of : 67 Report #: [id number] [facility] Test Date: 2021-02-09 Test Time: 08:14:30 Pat Name: BORA LOCK Department: Room: 356 P Gender: F Bounty Trapper: ANIBAL : 1965 Requested By: Kim Ramirez Order Number: [id number] MD: Ernst Valle Measurements Intervals [place] Rate: 48 P: 54 VA: 139 QRS: 28 QRSD: 103 T: 29 QT: 474 QTc: 424 Interpretive Statements Sinus bradycardia Poor R wave progression Compared to ECG 08/26/2010 06:42:49 Heart rate has slowed Electronically Signed On 02-09-2021 16:24:36 CDT by Ernst Valle [email or web address] <ELECTRONICALLY SIGNED> By: Ernst Valle MD, [facility] 02/09/21 1624 0814 3 Ernst Valle MD, FACC /EPI
--- NOTE | 2021-02-09 19:32 | NUR ---
PATIENT ARRIVED TO THE ICU AT 1845. PATIENT'S BELONGINGS ACCOUNTED FOR AND REPORT RECEIVED FROM 3W RN.
[2021-02-10] VITALS (34 sets, daily range): BP systolic 85–139; BP diastolic 36–75
[2021-02-10 06:07] LABS: ALBUMIN 2.2 g/dL (3.4-5.0); CALCIUM 7.6 mg/dL (8.5-10.1); CREATININE 0.7 mg/dL (0.6-1.0); DIRECT BILIRUBIN 0.2 mg/dL (<0.1-0.2); PHOSPHORUS 2.6 mg/dL (2.5-4.9); POTASSIUM 4.7 mmol/L (3.5-5.1); TOTAL BILIRUBIN 0.7 mg/dL (0.2-1.0); TOTAL PROTEIN 5.9 g/dL (6.4-8.2)
--- NOTE | 2021-02-10 06:10 | NUR ---
ASSUMED CARE AT 1900. SPOKE W/PT'S DAUGHTER AT BEDSIDE/OVER THE PHONE, ANSWERED MULTIPLE QUESTIONS ABOUT MEDICATIONS, PLAN FOR BIPAP, WHICH DOCTORS WERE SEEING PT, AND IF PLASMA OR PLT HAD BEEN ORDERED; FAMILY REQUESTED PULMONOLGIST CALL AND UPDATE THEM IN THE MORNING. THEY WERE ALSO QUITE CONCERNED AND INSISTENT THAT PT HAVE A CTA OF THE LUNGS D/T PRIOR HISTORY OF DVT'S AND PE'S AND SINCE SHE HAD BEEN OFF HER PRADAXA FOR SEVERAL DAYS. ALSO EXPLAINED ABOUT PRIMARY POINT OF CONTACT FOR FAMILY TO STREAMLINE COMMUNICATION BETWEEN STAFF AND FAMILY REGARDING UPDATES TO CARE. PT'S DAUGHTER CLEMENT HAMILTON IS TO BE LISTED PRIMARY CONTACT; HER PHONE NUMBER IS [phone]. SPOKE W/DR. VICENTE AT 2230 SO HE KNEW FAMILY WANTED THE CTA AND TO TALK TO HIM IN THE AM. AT THIS TIME, DR. VICENTE STATED HER CURRENT ANTI-COAGULATION OF PRADAXA WAS SUFFICIENT TO PREVENT COVID-RELATED CLOTS. PT PLACED ON BIPAP AT 2330, INITIALLY AT 50% FIO2. AFTER SHE GOT UP TO BSC ABOUT 0400 (WITH BIPAP ON, SHE BECAME VERY WINDED AND SLIGHTLY DIZZY, SATS DROPPED TO 88% AND HAD TO INCREASE FIO2 TO 65% TO MAINTAIN SATS ABOVE 90%. HAS CONTINUED TO HAVE INTERMIT DROPPING INTO 88-89%. PT IS ALSO NOTED TO BE BRADYCARDIC OVERNIGHT, HR STARTED IN 50'S BUT DROPPED INTO 40'S, EVEN DROPPING TO LOWEST OF 39 WHILE ASLEEP. NOTIFIED LARA BURT AND ASKED IF SHE WANTED A CARDIOLOGY CONSULT; SHE RECOMMENDED PHYSICIAN ORDER DURING THE DAY SINCE PT WAS NOT CURRENTLY SYMPTOMATIC. PT ASKED FOR BIPAP TO COME OFF AT 0630, COUGHING AND BLOWING NOSE, DESAT TO LOW 80'S ON NC, INCREASED O2 TO 13L, STILL TAKING TIME TO RECOVER TO UPPER 80'S. MAY BENEFIT FROM OPTIFLO DURING THE DAY.
--- NOTE | 2021-02-10 07:00 | HC ---
[facility] [place] [address] CONSULTATION Name: BORA LOCK Room #: 237-P ADM IN M.R.#: [id number] Admission: 02/07/21 Attend Phys: Keren Longo MD Discharge: Date of : 67 Report #: [id number] THIS REPORT FOR: cc: Jairo Earl,Albert Hargrove MD ~ REQUESTING PHYSICIAN: Dr. Keren Longo. REASON FOR CONSULTATION: Cytopenia. HISTORY OF PRESENT ILLNESS: The patient is a 55-year-old female followed by one of my partners, Dr. Eitan Madsen who has a history of colon cancer in 2008 and also chronic leukopenia and also thrombocytopenia. The patient is now admitted after a several day history of cough and fever and myalgias and diarrhea and found to be COVID positive with bilateral ground glass opacities in her lungs. On admit, her white count was 1.3, her platelets 42, hemoglobin 11.9; yesterday, the white count was up to 1.7, today it is up to 3.3 with an ANC of 2500, platelets today are 47,000, hemoglobin 11.8. As an outpatient, back at July, her white count was 2.2 and her platelets were 80,000, hemoglobin was 12.8. The patient had been on Pradaxa chronically because of chronic DVTs and had missed several days and has now been restarted. The patient currently says she has had some headaches with a little bit unusual for her. No mouth sores. No nasal drainage. No nosebleeds. She has a slight cough. She does feel slightly dyspneic. She is not aware of a skin rash or enlarged lymph nodes. She does have a slightly loose diarrhea for several days. She denies any dysuria. She does have chronic leg swelling of about several years' duration for which she uses compressive devices and wears compression stockings at home. PAST MEDICAL HISTORY: Notable for a [place] C colon cancer from about 2008 and this was a rectal cancer. From the note, she underwent chemo and radiation therapy and adjuvant chemotherapy. She then had reversal of her temporary ostomy. She also had a DVT, pulmonary emboli about the time of the diagnosis. She again had another clot in about 2012 and had a portal vein thrombosis on 01/17/2018 on a CAT scan at [place]. At that time, she had a spleen of about 17 cm. Liver was thought to be slightly abnormal, but biopsy did not find any fibrosis or cirrhosis. She also has a history of hypertension, hyperlipidemia, type 2 diabetes, obstructive sleep apnea using a CPAP that maybe not compliant at home. She has a history of CVAs that may be more radiographic findings and anything. She also has a history of I believe of several surgeries including tubal ligation, tubal , also has a history of Ortiz's palsy, diverticulitis, ruptured ovarian cyst, Port-A-Cath removal ____ colostomy takedown, bilateral TAHBSO, also morbid obesity with a BMI close to 50. SOCIAL HISTORY: Nonsmoker, nondrinker. 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 FAMILY HISTORY: There is cirrhosis in the family. ALLERGIES: REPORTEDLY TO MORPHINE, CIPRO AND ADHESIVE TAPE. CURRENT MEDICATIONS: At this time include albuterol sulfate respiratory therapy q.4 hours, ipratropium and albuterol q.4 hours respiratory therapy, Pradaxa 150 b.i.d., azithromycin 500 mg daily, IV ceftriaxone 1 g daily, thiamine 100 mg daily, zinc sulfate daily, cholecalciferol 1000 units b.i.d., vitamin C 500 b.i.d., hydrocodone p.r.n., sliding scale insulin, IV fluids, zolpidem p.r.n., guaifenesin p.r.n., dexamethasone 8 mg daily x 10 doses, remdesivir 100 mg IV daily x 4 doses, ivermectin 30 mg q.48 hours, budesonide respiratory therapy. PHYSICAL EXAMINATION: VITAL SIGNS: Height is 5 feet 5 inches or 165.1 cm, 311 pounds or 141 kilograms. Blood pressure recently 117/73, O2 sat 96%, respirations 20, pulse 51, temperature 98.1. MOOD: The patient is alert and conversant, conversing on the phone with family members or friends. HEENT: Oropharynx clear. NEUROLOGIC: The patient's speech and thought process appear to be normal. Moving upper extremities and also lower extremities appropriately. LYMPHATICS: No enlarged lymph nodes in the supraclavicular, cervical, axillary or inguinal region. ABDOMEN: Very obese. No organomegaly, but it would be obvious, honestly hard to tell. Nontender. EXTREMITIES: She does have some sequential compression devices on place. Does have some mild edema. She says this is chronic and not really new for her. LUNGS: Do have some soft rhonchi centrally. LABORATORY DATA: BUN of 20, creatinine 0.9. AST 79, down from 108; total bilirubin 0.8, down from 1.4; alkaline phosphatase 108; SGPT 61, down from 74. Albumin 2.3. LDH on admission 476. CRP was 55.4 at admission. Pro-time 12.4 on admission. APTT 29.2 on admission. D-dimer was 0.57. White count currently 3.3, had been 1.3 on admission; hemoglobin 11.8, stable; MCV 87.9; platelets 47, up from 42, remember it had been 80 as an outpatient. Differential includes an ANC currently of 2.5 thousand, up from 800. Ferritin was 273 this admit. UA, there 6-15 white cells on admit, bacteria 10-30, defer to others. Note the blood test this morning on 10 liters nasal cannula, had a pH 7.415, CO2 40.2 and O2 of 67.2. ASSESSMENT AND PLAN: 1. Cytopenia improving, though note the patient has chronic leukopenia with a white count of usually 2.2-3 as an outpatient and platelets of 80,[address] [address] CONSULTATION Name: BORA LOCK Room #: 237-P ADM IN M.R.#: [id number] Admission: 02/07/21 Attend Phys: Keren Longo MD Discharge: Date of : 67 Report #: [id number] outpatient. We will need to monitor this closely, but notes some improvement since admission note that this may be partly the steroid effect. 2. History of deep venous thromboses and portal vein thrombosis in the past, continues lifelong anticoagulation. Agree with use of Pradaxa and may need to switch to heparin or Lovenox or Arixtra if the patient becomes intubated. 3. History of colon cancer, not known to be recurrent. 4. History of COVID pneumonia. Continue anti-infectives per other doctors. The patient had extremely high risk for respiratory failure and need for mechanical ventilation. 5. History of sleep apnea in continuous positive airway pressure though maybe was not compliant, defer to others. 6. Diabetes type 2, sliding scale insulin and management per others. 7. Hypertension, management per others. 8. History of cerebrovascular accident radiographically, defer to others. We will follow with you. <ELECTRONICALLY SIGNED> By: Albert Tavares MD 02/10/21 0700 1045 1207 Albert aTvares MD /nt
--- NOTE | 2021-02-10 08:15 | NUR ---
ASSUMED CARE OF PT AT 0700 DR. BROWN AT BEDSIDE AT 0815
[2021-02-10 09:22] LABS: MCHC 32.6 g/dL (28.0-37.0)
[2021-02-10 09:24] LABS: HEMOGLOBIN 12.1 gm/dL (12.0-15.0); MCH 28.7 pg (26.0-34.0); MCV 87.9 fL (80.0-100.0); RDW 14.4 % (10.5-14.5)
[2021-02-10 12:13] LABS: ABSOLUTE NEUTROPHILS 1.6 thou/uL (1.4-8.2); METAMYELOCYTES 2 %
[2021-02-10 12:15] LABS: ANISOCYTOSIS 1+; PLATELET COUNT 37 thou/uL (150-400)
[2021-02-10 12:16] LABS: LARGE PLATELETS FEW
[2021-02-10 17:49] LABS: HEMOGLOBIN 12.7 gm/dL (12.0-15.0); MCH 28.2 pg (26.0-34.0); WBC 2.4 thou/uL (4.0-11.0)
[2021-02-10 17:51] LABS: HEMATOCRIT 39.7 % (37.0-47.0); MCHC 32.1 g/dL (28.0-37.0); MCV 87.9 fL (80.0-100.0); RBC 4.51 mil/uL (4.20-5.00); RDW 14.7 % (10.5-14.5)
--- NOTE | 2021-02-10 21:19 | NUR ---
CALL FROM DAUGHTER CLEMENT REQUESTING UPDATE, PASSCODE PROVIDED. SPOKE FOR APPROXIMATELY 10 MINUTES. ALL QUESTIONS ANSWERED WITHIN SCOPE OF PRACTICE. DAUGHTER ASKING ABOUT LENGTH OF STAY AND RECOVERY, THIS RN EMPHASIZED THAT EVERYONE IS DIFFERENT AND THAT A DR WILL BE ABLE TO BETTER ANSWER THOSE QUESTIONS.
--- NOTE | 2021-02-10 23:56 | NUR ---
SPOKE WITH DAUGHTER AGAIN FOR APPROXIMATELY 10-15 MINUTES, FREQUENT QUESTIONS AND OTHER DAUGHTER WAS IN ROOM WITH BORA ASKING QUESTIONS THROUGH CLEMENT. QUESTIONS INCLUDED "WHAT MEDICATIONS IS SHE ON" "WHAT IS SHE ON FOR BLOOD THINNER" "IS SHE PRONED" "DOES SHE HAVE SCDS ON" AND "ARE THEY GOING TO REPEAT A CXR IN THE AM." ALL QUESTIONS ANSWERED APPROPRIATELY AND WITHIN SCOPE OF PRACTICE.
[2021-02-11] VITALS (23 sets, daily range): BP systolic 97–166; BP diastolic 55–114
--- NOTE | 2021-02-11 05:06 | NUR ---
UP TO BSC WITH X1 ASSISTANCE, DESAT TO 83% FIRST TIME AND RECOVERED WELL. SECOND TIME, PT DESAT TO 79%, REQUIRING BIPAP TO RECOVER 02 SAT. PLACED ON BIPAP APPROXIMATELY 2230, TOLERATED WELL, SOME C/O DISCOMFORT, SATS BETWEEN 92-95% ON FI02 90%. NOT ABLE TO FULLY "PRONE" BUT ASSISTED TO TURN 45 DEGREES WITH WEDGES. PLEASANT AND COOPERATIVE.
[2021-02-11 06:18] LABS: HEMOGLOBIN 12.1 gm/dL (12.0-15.0); WBC 2.6 thou/uL (4.0-11.0)
[2021-02-11 06:20] LABS: HEMATOCRIT 36.8 % (37.0-47.0); MCH 28.6 pg (26.0-34.0); MCHC 32.9 g/dL (28.0-37.0); MCV 86.8 fL (80.0-100.0); PLATELET COUNT 47 thou/uL (150-400); RBC 4.24 mil/uL (4.20-5.00); RDW 14.2 % (10.5-14.5)
[2021-02-11 06:51] LABS: ALBUMIN 2.2 g/dL (3.4-5.0); CALCIUM 7.8 mg/dL (8.5-10.1); CREATININE 0.8 mg/dL (0.6-1.0); DIRECT BILIRUBIN 0.3 mg/dL (<0.1-0.2); PHOSPHORUS 2.5 mg/dL (2.5-4.9); POTASSIUM 4.5 mmol/L (3.5-5.1); TOTAL BILIRUBIN 0.7 mg/dL (0.2-1.0); TOTAL PROTEIN 5.8 g/dL (6.4-8.2)
[2021-02-11 09:14] LABS: ABSOLUTE NEUTROPHILS 2.2 thou/uL (1.4-8.2)
--- NOTE | 2021-02-11 09:15 | NUR ---
0900- Nurse updated patients spokes person on current status and treatments. Labs reveiewed, plan of care reviewed.
[2021-02-11 09:18] LABS: OVALOCYTES OCCASIONAL
[2021-02-11 09:19] LABS: BURR CELLS OCCASIONAL; POIKILOCYTOSIS SLIGHT; TEARDROPS OCCASIONAL
--- NOTE | 2021-02-11 10:54 | NUR ---
1040- During morning grand rounds, nurse asked Dr. Concepcion to please call patients spokes person this morning as she had some further questions for him. He expressed he would.
--- NOTE | 2021-02-11 10:54 | NUR ---
This morning shortly after talking with spokes person, Dr. Ellington came in to assess patient and talked/updated patients spokes person from his medical perspective.
--- NOTE | 2021-02-11 11:09 | NUR ---
1109- Nurse updated patients daughter, Yolanda on current status and plan of care.
--- NOTE | 2021-02-11 11:21 | NUR ---
If pt requires intubation, start enteral nutrition in next 24-48hr of vital HP at initial rate 30ml/hr. Will follow up Sunday for further goals.
--- NOTE | 2021-02-11 12:08 | NUR ---
TRIALED ON HEATED HIGH FLOW. O2 SATURATION WAS 71% AND RESPIRATORY RATE WAS IN THE 40'S
--- NOTE | 2021-02-11 12:50 | NUR ---
chart review. covid +, unable to visit with le[facility] on ppe. she cont to required 100% with bipap, bedside nurse have been in contact with her daughter markus. no anticipated dc over the weekend. will cont following as needed for dc needs.
--- NOTE | 2021-02-11 14:11 | NUR ---
VAT TEAM RN CONSULTED FOR CVL PLACEMENT. RIGHT IJ 6 IVORIAN TL JACC PLACED PER HOSPITAL POLICY. ALL LUMENS FLUSH BRISKLY AND RETURN BLOOD. PT TOLERATED WELL. CXR ORDERED FOR TIP LOCATION CONFIRMATION.
--- NOTE | 2021-02-11 15:45 | NUR ---
CXR RADIOLOGY REPORT READS IJ TIP OVERLIES ACJ. RELEASED FOR USE, PER HOSPITAL POLICY.
--- NOTE | 2021-02-11 19:39 | NUR ---
PATIENT MAINTAINING OXYGENATION ON BIPAP, NOT PROGRESSING TOWARDS PLAN OF CARE PATIENT CONTINUES TO DESAT WHEN OFF BIPAP OR WITH ACTIVITY, HOWEVER, SHE IS MAINTAINING. HER SPOKES PERSON WAS UPDATED THROUGHOUT THE DAY. LASIX GIVEN WITH DESIRED EFFECTS URINE OUTPUT >3LITERS THIS SHIFT. HER LUNGS ARE CLEAR TO ASCULTATION. SHE HAS BEEN NPO TODAY SECONDARY TO NEED FOR BIPAP. PLAN OF CARE IS TO CONTINUE TO MONITOR PATIENT STATUS, OXYGENATION, AND ATTEMPT TO PRONE PATIENT PER DR. VICENTE REQUEST. PATIENT ON SIDE/SEMI TUMMY, WON'T GO FULL PRONE AT THIS TIME.
--- NOTE | 2021-02-11 21:30 | NUR ---
SPOKE WITH DAUGHTER FOR SEVERAL MINUTES, GAVE UPDATE. REINFORCED DAY SHIFT'S CONVERSATION THAT FAMILY NEEDS TO ALLOW PT TO REST AND STOP CALLING SO FREQUENTLY AT ALL TIMES OF DAY AND NIGHT. DAUGHTER STATED AGREEMENT AND UNDERSTANDING. WHILE GIVING PM MEDS, PT PHONE RANG 7 TIMES. PULLED PT UP IN BED, PT BECAME VERY WINDED AND STATED SHE COULDN'T BREATHE AND FELT LIKE SHE WAS GOING TO THROW UP. BIPAP MASK READJUSTED, PT SAT STRAIGHT UP IN BED. RESTING WITH EYES CLOSED, APPEARS FATIGUED. DISCUSSED INTUBATION, PT STATES SHE IS NOT THERE YET.
[2021-02-12] VITALS (23 sets, daily range): BP systolic 137–185; BP diastolic 54–98
[2021-02-12 04:51] LABS: ALBUMIN 2.3 g/dL (3.4-5.0); CREATININE 0.8 mg/dL (0.6-1.0); DIRECT BILIRUBIN 0.2 mg/dL (<0.1-0.2); PHOSPHORUS 2.6 mg/dL (2.5-4.9); POTASSIUM 3.9 mmol/L (3.5-5.1); TOTAL BILIRUBIN 0.8 mg/dL (0.2-1.0); TOTAL PROTEIN 5.9 g/dL (6.4-8.2)
[2021-02-12 05:01] LABS: ABSOLUTE NEUTROPHILS 3.3 thou/uL (1.4-8.2); BASOPHILS 0.1 % (0.0-2.0); EOSINOPHILS 0.1 % (0.0-3.0); HEMOGLOBIN 12.7 gm/dL (12.0-15.0); LYMPHOCYTES 6.6 % (24.0-44.0); MCH 28.4 pg (26.0-34.0); MCHC 32.5 g/dL (28.0-37.0); MCV 87.3 fL (80.0-100.0); PLATELET COUNT 55 thou/uL (150-400); POLYS 86.2 % (36.0-66.0); RBC 4.47 mil/uL (4.20-5.00); RDW 14.3 % (10.5-14.5); WBC 4.1 thou/uL (4.0-11.0)
--- NOTE | 2021-02-12 05:14 | NUR ---
PT SATS FLUCTUATING FROM 86%-94%. MOST IMPROVED SATURATION WHILE LYING ON L SIDE FAR OVER BIPAP ALLOWS. PT WILL TOLERATE POSITION FOR A WHILE AND THEN STATE SHE IS NOT COMFORTABLE. BECOMES EXTREMELY LABORED WITH ACTIVITY AND THEN C/O NAUSEA AND FEELING HOT. ABLE TO CONROL WITH ENVIRONMENTAL FACTORS. PT HAS RESTED OFF AND ON THROUGHOUT SHIFT. SPOKE WITH DAUGHTER AGAIN BEFORE MIDNIGHT. CONTINUES TO REQUIRE FI02 100% ON BIPAP WITH CHANGES IN PRESSURE PER RT. SPOKE WITH PATIENT TWICE REGARDING VENTILATOR AND URGED PT TO TELL STAFF WHEN SHE IS TOO TIRED, TO PREVENT EMERGENT SITUATION.
--- NOTE | 2021-02-12 07:22 | NUR ---
ASSUMMED CARE OF THIS PATIENT FROM THE NIGHT NURSE AT 0700.
--- NOTE | 2021-02-12 11:00 | NUR ---
PATIENT ASSISTED INTO THE PRONE POSITION. O2 SAT REMANINS 87 TO 88%. STATUS UNCHANGED WILL CONTINUE TO MONITOR.
--- NOTE | 2021-02-12 18:40 | NUR ---
DISCUSSED WITH PATIENT IF SHE WISHES TO HAVE THE BREATHING TUBE IF HER CONDITIONS WARRENTS IT, EXPLAINED THE RISK AND BENEFITS, INCLUDING . PATIENT IS ALERT AND ORIENTED X4 AND REQUESTED THAT WE FACETIME HER DAUGHTERS CONCERNING IF SHE SHOULD GO ON THE VENTILATOR. EXPLINED THE RISK AND BENEFITS WITH DAUGHTERS RICKY AND CLEMENT. UPDATED THEM THAT SHE WAS NOT PROGRESSING TOWARDS THE OUTCOME GOALS AND THAT HER O2 SATS WERE NOT ANY BETTER. DAUGHTERS ARE WISHING THAT WE DO WHAT IS BEST TO HELP THEIR MOTHER.
--- NOTE | 2021-02-12 20:00 | NUR ---
PATIENT IS NOT PROGRESSING TOWARDS OUTCOME GOALS O2 SATS DECLINE WITH MINIMAL ACTIVITY. DAUGHTERS CALLED IN AT 1900 AND REASSURANCE GIVEN THAT WE WOULD CONTINUE TO WORK TO KEEP PATIENT OFF THE VENT AND ALLOW ADEQUATE REST PERIODS FOR HER TO RECOVER AFTER ACTIVITY AND TO SPACE OUT AND PROCEED AT HER PACE. REINFORCED THAT OUR OVERALL GOAL IS PROCEED ON THE CURRENT PLAN OF CARE AND WATCH FOR INCREASING FATIGUE AND ELVATED RESP RATE. UPDATED THAT PATIENT'S CURRENT RESP RATE WAS BACK DOWN INTO THE UPPER 20'S AND SAT WERE STILL IN THE 90% RANGE. WILL CONTINUE TO MONITOR. DR VICENTE INFORMED OF PATIENT STATUS AND WILL CALL FAMILY TO UPDATE THEM.
[2021-02-13] VITALS (96 sets, daily range): BP systolic 71–229; BP diastolic 36–118
[2021-02-13 02:48] LABS: ABSOLUTE NEUTROPHILS 3.9 thou/uL (1.4-8.2); BASOPHILS 0.1 % (0.0-2.0); EOSINOPHILS 0.3 % (0.0-3.0); HEMATOCRIT 39.6 % (37.0-47.0); HEMOGLOBIN 12.7 gm/dL (12.0-15.0); LYMPHOCYTES 6.4 % (24.0-44.0); MCH 28.2 pg (26.0-34.0); MCHC 32.1 g/dL (28.0-37.0); MCV 87.9 fL (80.0-100.0); MONOCYTES 8.4 % (1.0-8.0); PLATELET COUNT 72 thou/uL (150-400); POLYS 84.8 % (36.0-66.0); RDW 14.3 % (10.5-14.5); WBC 4.8 thou/uL (4.0-11.0)
[2021-02-13 03:27] LABS: ALBUMIN 2.4 g/dL (3.4-5.0); CREATININE 0.8 mg/dL (0.6-1.0); MAGNESIUM 1.7 mg/dL (1.8-2.4); POTASSIUM 3.6 mmol/L (3.5-5.1); TOTAL BILIRUBIN 0.9 mg/dL (0.2-1.0); TOTAL PROTEIN 5.7 g/dL (6.4-8.2)
--- NOTE | 2021-02-13 09:29 | NUR ---
AT APPROX 0430 THE PTS WORK OF BREATHING INCREASED. I STARTED TO DISCUSS THE PTS WISHES AND IF SHE WOULD WANT TO BE INTUBATED. SHE ASKED IF SHE COULD FACETIME HER CHILDREN TO HELP HER WITH THIS DECSION. I WAS ABLE TO GET IN CONTACT WITH HER 2 DAUGHTERS, SON, AND A FEW OTHER EXTENDED FAMILY MEMBERS. AFTER FACETIMING HER FAMILY, CLEMENT CALLED THE NURSES STATION TO DICUSSED EVERYTHING IN MORE DETAIL. SHE ADDED 2 OTHER WOMEN TO THE CALL. EVERYONE AGREED THAT IF THE PT NEEDED TO BE PLACED ON THE VENT SHE SHOULD DO IT. AT THIS TIME I ALSO UPDATED THE FAMILY, EXPLAINING THAT SHE WOULD MOST LIKELY NEED TO BE INTUBATED AT SOMETIME TODAY. ONCE THIS PHONE CALL ENDED I WENT INTO THE PTS ROOM AND AGAIN ASKED IF SHE WOULD WANT TO BE INTUBATED. SHE ASKED WHAT HER CHILDREN SAID AND I TOLD HER THAT THEY THOUGHT SHE SHOULD BE PLACED ON THE VENT IF NESSESSARY. THE PT WAS IN AGREEANCE. AT APPROX 0530 THE PT BECAME MORE ANXIOUS AND SHORT OF BREATH. I EXPLAINED THAT HER BREATHING WAS GETTING WORSE AND SHE WOULD LIKELY NEED TO BE INTUBATED SOON. SHE AGREED. AT THIS TIME I CALLED DR VICENTE TO TELL HIM THAT THE PT WANTED TO BE INTUBATED AND IT WOULD LIKELY NEED TO HAPPEN LATER THAT MORNING. DR VICENTE AGREED AND SAID HE WOULD COME IN SOON. AT APPROX 0545 THE PT ASKED TO SEE HER KIDS AGAIN. WE WERE ABLE TO GET A HOLD OF HER 2 DAUGHTERS VIA FACETIME. THIS RN REMAINED IN THE PTS ROOM FOR THE NEXT HOUR AND A HALF UNTIL DR VICENTE WAS IN HOUSE AND READY TO INTUBATE. DR VICENTE WAS AT BEDSIDE AT APPROX 0730 AND THE PT WAS SUCCESSFULLY INTUBATED AROUND 0745. CLEMENT CALLED THE NURSES STATION AT APPROX 0845. SHE ASKED IF THE VISUAL ARTIST CHARGE NURSE WAS ABLE TO GET A DPOA PAPER SIGNED. I EXPLAINED THAT HER MOTHER WAS TOO ANXIOUS PROIR TO INTUBATION TO SIGN ANY PAPERS. CLEMENT THEN ADDED HER SISTER AND AUNT TO THE PHONE CALL. I SPENT ABOUT 25 MINUTES SPEAKING WITH THE FAMILY AND ADDRESSING ANY QUESTIONS OR CONCERNS THEY HAD AT THIS TIME.
[2021-02-13 09:49] LABS: BE(vivo) -2.3 mmol/L (-2 to +3); HCO3 24.5 mmol/L (22.0-26.0); PCO2 49.9 mmHg (35.0-45.0)
[2021-02-13 09:50] LABS: pH 7.309 (7.360-7.450)
--- NOTE | 2021-02-13 11:37 | NUR ---
ASSUMED CARE AT 0700. PATIENT INTUBATED AT 0745. ATTEMPTED TO WEAN DOWN FIO2. PATIENT DID NOT TOLERATE IT EVIDENCED BY DEREASED OXYGEN SATURATION WITHOUT SHOWING SIGNS OF RESPIRATORY DISTRESS. FIO2 NOW AT 100%.
--- NOTE | 2021-02-13 21:12 | NUR ---
ATTEMPT TO CALL DGT BCK AT THIS TIME, NO ANSWER X2
--- NOTE | 2021-02-13 21:18 | NUR ---
CALL FROM DR VICENTE REGARDING PT STATUS, LENGTHY DISCUSSION REGARDING PLAN OF CARE, GTTS, VS. ORDERS RECEIVED.
--- NOTE | 2021-02-13 22:07 | NUR ---
SPOKE WITH DAUGHTER JOSE AND GAVE STATUS UPDATE, ANSWERED ALL QUESTIONS WITHIN SCOPE OF PRACTICE
[2021-02-14] VITALS (116 sets, daily range): BP systolic 71–169; BP diastolic 36–95
[2021-02-14 05:25] LABS: BE(vivo) 1.3 mmol/L (-2 to +3); HCO3 26.7 mmol/L (22.0-26.0); PO2 110.9 mmHg (80.0-100.0); pH 7.391 (7.360-7.450)
[2021-02-14 05:27] LABS: HEMATOCRIT 43.4 % (37.0-47.0); HEMOGLOBIN 14.3 gm/dL (12.0-15.0); MCH 28.8 pg (26.0-34.0); MCV 87.2 fL (80.0-100.0); PLATELET COUNT 100 thou/uL (150-400); RBC 4.98 mil/uL (4.20-5.00); RDW 14.5 % (10.5-14.5); WBC 6.6 thou/uL (4.0-11.0)
[2021-02-14 05:43] LABS: CALCIUM 8.2 mg/dL (8.5-10.1); CREATININE 0.7 mg/dL (0.6-1.0); MAGNESIUM 1.9 mg/dL (1.8-2.4); PHOSPHORUS 3.4 mg/dL (2.5-4.9); POTASSIUM 4.1 mmol/L (3.5-5.1)
--- NOTE | 2021-02-14 05:46 | NUR ---
GTTS TITRATED PER ORDER, HR LABILE, TOF 4/[address] VICENTE LONG PT IS SYNCHRONOUS WITH VENT. TOLERATING TURNS WELL, LUNGS ARE CLEAR/DIM. NOT PRONED THIS SHIFT IN ORDER FOR CXR AND ABG TO BE OBTAINED THIS AM, WILL PASS ON TO DAY SHIFT TO PRONE PER NEW PRONING SCHEDULE/POLICY.
[2021-02-14 06:54] LABS: ABSOLUTE NEUTROPHILS 5.8 thou/uL (1.4-8.2)
--- NOTE | 2021-02-14 09:40 | NUR ---
chart review. covid +. noted she had to be intubated yesterday 02/13 and has nutritional support. cm spoke with polina lawrence, " deepti i got "/morris crane. no complaints voiced. she stated " still waiting to see if we get the 15min visit like over weekend and all can to is pray for her"/royce. active listen and support during phone call.
--- NOTE | 2021-02-14 10:16 | NUR ---
Nutrition: REC Vital HP to reach 50 mL/hr. If able to add water flushes per physician, suggest adding beneprotein powder in flushes.
--- NOTE | 2021-02-14 11:18 | 2DMMODE ---
[facility] [place] [address] 2 D/M-MODE ECHOCARDIOGRAM Name: BORA LOCK Room #: 237-P ADM IN M.R.#: [id number] Admission: 02/07/21 Attend Phys: Keren Longo MD Discharge: Date of : 67 Report #: [id number] THIS REPORT FOR: cc: Jairo Earl Steven F. DO Lammoglia, Francisco J. MD ~ APPROVED REPORT Study performed: 02/14/2021 10:15:48 EXAM: Comprehensive 2D, Doppler, and color-flow Echocardiogram Patient Location: ICU Room #: 237 Status: routine BSA: 2.39 HR: 48 bpm BP: 128/69 mmHg Rhythm: Bradycardia Other Information Study Quality: AdequateTechnically Limited Indications Dyspnea Covid-19 Left Ventricle The left ventricle is normal size. There is normal LV segmental wall motion. There is normal left ventricular wall thickness. The left ventricular systolic function is normal. The left ventricular ejection fraction is within the normal range. LVEF is >55%. This study is not technically sufficient to allow evaluation of the LV diastolic function. Right Ventricle The right ventricle is normal size. The right ventricular systolic function is normal. Atria The left atrium size is normal. The right atrium size is normal. Aortic Valve The aortic valve is normal in structure. The Aortic valve is [facility] [place] [address] 2 D/M-MODE ECHOCARDIOGRAM Name: BORA LOCK Room #: 237-P ADM IN M.R.#: [id number] Admission: 02/07/21 Attend Phys: Keren Longo MD Discharge: Date of : 67 Report #: [id number] sclerotic. No aortic regurgitation is present. There is no aortic valvular stenosis. Mitral Valve The mitral valve is normal in structure. There is no mitral valve regurgitation noted. No evidence of mitral valve stenosis. Tricuspid Valve The tricuspid valve is normal in structure. Tricuspid valve is not well visualized. There is no tricuspid valve regurgitation noted. Pulmonic Valve Pulmonic valve is not well visualized. Great Vessels The aortic root is normal in size. IVC is dilated and collapses <50% with inspiration. Pericardium There is no pericardial effusion. <Conclusion> The left ventricle is normal size. LVEF is >55%. The aortic valve is normal in structure. The Aortic valve is sclerotic. The mitral valve is normal in structure. The tricuspid valve is normal in structure. Tricuspid valve is not well visualized. Pulmonic valve is not well visualized. The aortic root appears grossly normal in size. There is no pericardial effusion. <ELECTRONICALLY SIGNED> By: Bruce Simon MD 02/14/21 1117 [id number] Bruce Simon MD /INF
--- NOTE | 2021-02-14 18:50 | NUR ---
PATIENT FAMILY MEMBER HAD MULTIPLE UPDATES DURING THE DAY. FACETIME TWICE. SPOKE JOSE (DTR) FOR UPDATES. PATIENT CONTINUES ON NIMBEX, PROPOFOL, VERSED, FENTANYL, DOPAMINE. TOF 4/4. INITIATED TUBE FEEDS TODAY. GOAL 5OML/HR. CURRENT RATE 10ML/HR. PATIENT PRONED AT 1400. TO PASS ALONG FOR DAY SHIFT TOMORROW PATIENT DAUGHTER NEEDS MD NOTE WRITTEN STATING BORA LCOK IS UNDER THEIR CARE AT [facility].
[2021-02-15] VITALS (86 sets, daily range): BP systolic 89–145; BP diastolic 38–72
[2021-02-15 05:50] LABS: CALCIUM 8.1 mg/dL (8.5-10.1); CREATININE 0.7 mg/dL (0.6-1.0); MAGNESIUM 1.9 mg/dL (1.8-2.4); PHOSPHORUS 2.9 mg/dL (2.5-4.9); POTASSIUM 3.9 mmol/L (3.5-5.1)
--- NOTE | 2021-02-15 16:19 | NUR ---
dr marcum, for pt completed and giving to bedside nurse to get to pt daughter.
--- NOTE | 2021-02-15 16:55 | NUR ---
ASSUMED PATIENT CARE AT 0700. ABLE TO WEAN DOWN LEVOPHED THROUGHOUT THE DAY. CURRENTLY REQUIRING 3 MCG OF LEVO. PATIENT REMAINS ON CONTINIOUS NIMBEX, FENTANYL, VERSED, AND PROPOFOL GTTS. PATIENT PRONED AT 1445, TOLERATING WELL. FIO2 WEANED TO 70%. BRADYCARDIA IMPROVED WITH HEART RATE IN THE 70'S FOR MAJORITY OF THE DAY. PATIENT BELONGINGS INCLUDING 2 IPHONES, Snapflow WATCH, [employer] RIVET PASSER, AND PURSE SENT WITH PATIENT'S DAUGHTER JOSE. PAPERWORK VERIFYING TRANSFER OF BELONGINGS SIGHNED BY DAUGHTER AND PLACED IN THE PATIENT'S CHART. FAMILY MEMBERS UPDATED MULTIPLE TIMES THROUGHOUT THE DAY BY MYSELF AND DR. ARECHIGA. WILL CONTINUE TO MONITOR.
[2021-02-16] VITALS (53 sets, daily range): BP systolic 83–130; BP diastolic 27–65
[2021-02-16 05:05] LABS: CALCIUM 7.9 mg/dL (8.5-10.1); CREATININE 0.9 mg/dL (0.6-1.0); PHOSPHORUS 3.4 mg/dL (2.5-4.9); POTASSIUM 3.9 mmol/L (3.5-5.1)
--- NOTE | 2021-02-16 09:50 | NUR ---
Nutrition: Based on current propofol demands providing 660 kcals from lipid, REC Vital HP goal rate of 35 mL/hr when resuming. Currently on lasix and large amount of IVpbs. When/if able to order water flushes, suggest administer beneprotein powder packets in flushes.
--- NOTE | 2021-02-16 10:10 | NUR ---
ASSUMED CARE AT 0700. SPOKE WITH PATIENT'S DAUGHTER, JOSE, FROM [phone] AND SHE WAS UPDATED AND EDUCATED ON THE PATIENT'S CONDITION AND PLAN OF CARE.
--- NOTE | 2021-02-16 11:27 | NUR ---
received phone call from teresa hurt to see if has any dc needs to assist with . education that at this time, not sure what dc needs she might needs. will cont following as needed for needs.
[2021-02-17] VITALS (34 sets, daily range): BP systolic 88–136; BP diastolic 37–78
[2021-02-17 09:24] LABS: HEMATOCRIT 35.8 % (37.0-47.0); HEMOGLOBIN 11.6 gm/dL (12.0-15.0); MCH 28.7 pg (26.0-34.0); MCHC 32.4 g/dL (28.0-37.0); MCV 88.6 fL (80.0-100.0); RBC 4.04 mil/uL (4.20-5.00); RDW 15.1 % (10.5-14.5); WBC 3.6 thou/uL (4.0-11.0)
[2021-02-17 09:32] LABS: CALCIUM 8.1 mg/dL (8.5-10.1); POTASSIUM 3.7 mmol/L (3.5-5.1)
--- NOTE | 2021-02-17 11:53 | NUR ---
ON THE VENT, WEANING DOWN SEDATION TO WAKE PATIENT UP. DAUGHTER CALLED AND UPDATED AND STATED THAT DR. LOPEZ HAD ALREADY CALLED HER WITH UPDATE, ALSO WOULD LIKE TO SET UP FACE TIME LATER. ASSESSMENT DOCUMENTED.
--- NOTE | 2021-02-17 21:40 | NUR ---
DAUGHTER JOSE CALLED FOR PATIET UPDATE AT 2134. UPDATE GIVEN. NO FURTHER QUESTIONS FROM DAUGHTER AT THIS TIME.
[2021-02-18] VITALS (32 sets, daily range): BP systolic 98–120; BP diastolic 46–66
--- NOTE | 2021-02-18 00:39 | NUR ---
55MG VERSED WASTED FROM BAG WITH Frank BARONE RN AT 0020.
[2021-02-18 02:24] LABS: ALBUMIN 2.4 g/dL (3.4-5.0); CALCIUM 8.1 mg/dL (8.5-10.1); CREATININE 0.9 mg/dL (0.6-1.0); MAGNESIUM 2.2 mg/dL (1.8-2.4); POTASSIUM 3.6 mmol/L (3.5-5.1); TOTAL BILIRUBIN 0.9 mg/dL (0.2-1.0); TOTAL PROTEIN 5.1 g/dL (6.4-8.2)
--- NOTE | 2021-02-18 13:57 | NUR ---
chart review, cont on vent, nutritional support. covid +. discussed during los. wean trials. no anticipated dc over the weekend. cm spoke with daughter royce lawrence via phone call. no concerns or needs voiced. bedside nurse spoke with her today as well. will cont following as needed for dc needs.
--- NOTE | 2021-02-18 18:05 | NUR ---
ASSUMED PATIENT CARE AT 0700. PATIENT REMAINS ON VERSED GTT, INCREASED PRIOR TO PRONING DUE TO PATIENT AGITATION AND COUGHING. PEEP WEANED TO 12 BY RT. PATIENT PRONED AT 1300. FIO2 INCREASED TO 50% DUE TO DESATURATION AFTER PRONING. DAUGHTER UPDATED TWICE VIA PHONE. TUBE FEEDING RATE INCREASED PER ORDERS. WILL CONTINUE TO MONITOR.
[2021-02-19] VITALS (29 sets, daily range): BP systolic 101–150; BP diastolic 53–94
[2021-02-19 04:08] LABS: BE(vivo) 6.4 mmol/L (-2 to +3); HCO3 31.1 mmol/L (22.0-26.0); PCO2 45.3 mmHg (35.0-45.0); pH 7.455 (7.360-7.450); sO2 90.4 % (92.0-98.0)
[2021-02-19 04:37] LABS: HEMATOCRIT 36.9 % (37.0-47.0); HEMOGLOBIN 11.8 gm/dL (12.0-15.0); MCH 28.5 pg (26.0-34.0); MCV 88.9 fL (80.0-100.0); RBC 4.14 mil/uL (4.20-5.00); RDW 15.4 % (10.5-14.5); WBC 4.1 thou/uL (4.0-11.0)
[2021-02-19 04:51] LABS: ALBUMIN 2.4 g/dL (3.4-5.0); CALCIUM 8.6 mg/dL (8.5-10.1); CREATININE 0.8 mg/dL (0.6-1.0); POTASSIUM 3.6 mmol/L (3.5-5.1); TOTAL BILIRUBIN 0.9 mg/dL (0.2-1.0); TOTAL PROTEIN 5.6 g/dL (6.4-8.2)
--- NOTE | 2021-02-19 05:54 | NUR ---
PT REMAINS INTUBATED AND SEDATED WITH VERSED GTT. PATIENT HAS REQUIRED AN INCREASE IN VERSED R/T COUGHING, AND GRIMACING. MINIMAL SECRETIONS VIA IN LINE SUCTIONING. PATIENT WAS UNPRONED AT 0130. AT APPROX 0400, PATIENTS FIO2 INCREASED TO 60% PER DR. ORTEGA. SEE ABG FOR FURTHER DETAILS. TUBE FEEDS AT GOAL. LARGE AMOUNTS OF LIQUID STOOL THRU THE NIGHT, APPROX 600MLS. ADEQUATE URINE OUTPUT VIA BHAKTA CATHETER. URINE CONTAINS LARGE AMOUNTS OF SEDIMENT. WILL CONTINUE WITH PLAN OF CARE. DAUGHTER, JOSE, UPDATED AT BEGINNING OF SHIFT WITH NOT FURHTER QUESTIONS.
--- NOTE | 2021-02-19 09:00 | NUR ---
ASSUMMED CARE OF THIS PATIENT AT 0700 FROM THE NIGHT NURSE WELLINGTON TAVAREZ. DR LOPEZ IN TO EXAMINE PATIENT. TUBE FEEDINGS TURNED OFF PER ORDER.
--- NOTE | 2021-02-19 09:40 | NUR ---
SPOKE WITH PATIENT'S DAUGHTER, CLEMENT AND UPDATED HER ON PATIENT STATUS. ALSO INFORMED HER THAT DR ARECHIGA STATED THAT HE WILL CALL HER TO UPDATE HER TO THE TEST AND LAB RESULTS.
--- NOTE | 2021-02-19 14:20 | NUR ---
PATIENT PLACED IN PRONE POSITION, APPEARS UNCOMFORTABLE HEART RATE AND RESP RATE INCREASED. DR ORTEGA NOTIFIED AND ORDERS NOTED. WILL CONTINUE TO MONITOR
--- NOTE | 2021-02-19 14:49 | NUR ---
SPOKE WITH PATIENT'S DAUGHTER BORA AND UPDATED HER ON HER MOTHER'S STATUS.
--- NOTE | 2021-02-19 17:40 | NUR ---
JOSE CALLED IN AND UPDATED ON HER MOTHER'S STATUS.
--- NOTE | 2021-02-19 18:43 | NUR ---
PATIENT REMAINS CRITICAL AND NOT PROGRESSING TOWARDS OUTCOME GOALS. APPEARS MORE COMFORTABLE AFTER FENTANYL STARTED. WILL CONTINUE TO MONITOR.
[2021-02-20] VITALS (47 sets, daily range): BP systolic 87–148; BP diastolic 44–78
[2021-02-20 03:18] LABS: HEMATOCRIT 36.1 % (37.0-47.0); HEMOGLOBIN 11.4 gm/dL (12.0-15.0)
--- NOTE | 2021-02-20 14:59 | NUR ---
ASSUMED CARE OF PT AT 0700 JORDAN AT BEDSIDE AT 0730, HE WAS INFORMED ABOUT PT'S BLEEDING FROM NOSE AND MOUTH, HE WANTS TO CONTINUE TO PRONE THE PT SPOKE TO PT'S DAUGHTER AT 0930 AND 1500, THEY HAVE LOTS OF QUESTIONS REGARDING THE PT ASPIRATING. I HAVE ASKED DR. ORTEGA TO GIVE THE FAMILY A CALL SO THAT HE CAN ANSWER ALL OF THEIR QUESTIONS. PT PRONED AT 1445
[2021-02-20 18:26] LABS: URINE BILIRUBIN NEGATIVE (Negative); URINE BLOOD 3+ (Negative); URINE CLARITY SL CLOUDY; URINE COLOR YELLOW; URINE GLUCOSE-RANDOM* NEGATIVE (Negative); URINE KETONES NEGATIVE (Negative); URINE NITRITE-REFLEX NEGATIVE (Negative); URINE PROTEIN (DIPSTICK) TRACE (Negative); URINE SPECIFIC GRAVITY 1.025 (1.005-1.035); URINE UROBILINOGEN 0.2 E.U./dl (0.2-1.0)
[2021-02-20 18:27] LABS: URINE LEUKOCYTES-REFLEX 2+ (Negative)
[2021-02-20 18:36] LABS: CASTS None Seen /LPF (None Seen); CRYSTALS None Seen /LPF (None Seen); SQUAMOUS 4-10 Moderate /LPF (0-3); URINE RBC 3-10 Few /HPF (0-2); YEAST-REFLEX Present (None Seen)
[2021-02-20 18:37] LABS: URINE WBC-REFLEX >25 Many /HPF (0-5)
--- NOTE | 2021-02-20 23:58 | NUR ---
1400 VANC DOSE NOT STARTED UPON ARRIVAL OF THIS RNS SHIFT. THIS RN NOTICED DURING MED PASS AT APPROVE 2200. [facility] NOTIFIED. PER MARQUES IN PHARMACY, GIVE THAT DOSE AND [facility] WILL RESCHEDULE AND RETIME TROUGH. VANC STARTED AT 2250.
[2021-02-21] VITALS (52 sets, daily range): BP systolic 87–144; BP diastolic 42–74
[2021-02-21 01:18] LABS: HEMATOCRIT 31.4 % (37.0-47.0); MCH 28.6 pg (26.0-34.0); MCHC 31.9 g/dL (28.0-37.0); MCV 89.8 fL (80.0-100.0); PLATELET COUNT 50 thou/uL (150-400); RDW 15.2 % (10.5-14.5); WBC 2.7 thou/uL (4.0-11.0)
[2021-02-21 01:32] LABS: ALBUMIN 2.1 g/dL (3.4-5.0); CALCIUM 8.3 mg/dL (8.5-10.1); CREATININE 0.8 mg/dL (0.6-1.0); MAGNESIUM 1.9 mg/dL (1.8-2.4); POTASSIUM 3.6 mmol/L (3.5-5.1); TOTAL BILIRUBIN 0.9 mg/dL (0.2-1.0); TOTAL PROTEIN 4.7 g/dL (6.4-8.2)
[2021-02-21 02:56] LABS: ABSOLUTE NEUTROPHILS 2.3 thou/uL (1.4-8.2); ATYPICAL LYMPHS 1 %; LARGE PLATELETS OCCASIONAL; METAMYELOCYTES 1 %; NUCLEATED RBCS 3 /100WBC; PLATELET ESTIMATE DECREASED
--- NOTE | 2021-02-21 07:15 | EKG ---
[address] [address] ELECTROCARDIOGRAM REPORT Name: BORA LOCK Room #: 237-P ADM IN M.R.#: [id number] Admission: 02/07/21 Attend Phys: Keren Longo MD Discharge: Date of : 67 Report #: [id number] [facility] Test Date: 2021-02-18 Test Time: 03:32:25 Pat Name: BORA LOCK Department: Room: 237 P Gender: F Doubler Operator: WELLINGTON LEDESMA : 1965 Requested By: Keren Longo Order Number: [id number] : Lenin Martinez Measurements Intervals [place] Rate: 71 P: 60 MS: 120 QRS: 43 QRSD: 100 T: 232 QT: 394 QTc: 429 Interpretive Statements Sinus rhythm Borderline repolarization abnormality Compared to ECG 02/09/2021 08:14:30 Sinus bradycardia no longer present Poor R-wave progression no longer present Electronically Signed On 02-21-2021 7:14:49 CDT by Lenin Martinez [email or web address] <ELECTRONICALLY SIGNED> By: Lenin Martinez MD, [facility] 02/21/2114 1 1 Lenin Martinez MD, FACC /EPI
--- NOTE | 2021-02-21 08:11 | NUR ---
ASSUMED CARE OF PT AT 0700 DR. BROWN AT BEDSIDE AT 0742 GAVE ORDERS FOR COAG'S AND TO CONSULT GI,DUE TO THE COPIOUS AMOUNT OF BLEEDING COMING FROM HER MOUTH. CALLED IN BOTH CONSULTS TO GI AND ENT. PER LAST EGD SHE DOES HAVE A HISTORY OF ESOPHAGEAL VARICES.
[2021-02-21 11:02] LABS: APTT 29.8 Seconds (24.5-32.8); INR 1.2
--- NOTE | 2021-02-21 22:30 | NUR ---
SPOKE WITH PT DAUGHTER JOSE REGARDING STATUS, GAVE BRIEF UPDATE. DAUGHTER ASKING ABOUT VITAL SIGNS, BLEEDNG AND WHEN THE PEEP CAN GET TURNED DOWN ON THE VENTILATOR. EXPLAINED THAT THE AIR CONDITIONING ENGINEER AND RT TO A SMALL DEGREE DETERMINE THE SETTINGS OF THE VENT BASED ON PT STATUS. EMPHASIZED THAT PT IS CONTINUALLY EVALUATED AND FOR FAMILY TO TRY AND TAKE THINGS DAY BY DAY.
[2021-02-22] VITALS (48 sets, daily range): BP systolic 99–133; BP diastolic 52–85
[2021-02-22 04:52] LABS: HEMOGLOBIN 10.2 gm/dL (12.0-15.0); WBC 2.6 thou/uL (4.0-11.0)
[2021-02-22 05:00] LABS: HEMATOCRIT 31.6 % (37.0-47.0); MCH 29.4 pg (26.0-34.0); MCHC 32.2 g/dL (28.0-37.0); MCV 91.3 fL (80.0-100.0); RBC 3.47 mil/uL (4.20-5.00); RDW 15.5 % (10.5-14.5)
[2021-02-22 05:13] LABS: CALCIUM 8.4 mg/dL (8.5-10.1); CREATININE 0.9 mg/dL (0.6-1.0); POTASSIUM 3.8 mmol/L (3.5-5.1)
--- NOTE | 2021-02-22 06:14 | NUR ---
pt opens eyes to some cares, grimaces with oral cares and resists opening eyes. tolerates turns very well, bleeding from mouth and hilo has slowed.
--- NOTE | 2021-02-22 19:38 | NUR ---
SPOKE TO PATIENT ASSISTANT EDITOR ON THE PHONE TWICE TODAY. FAMILY FACETIMED WITH PATIENT. PATIENT FIO2 WEANED TO 50% DURING THE DAY. MARGINAL URINE OUTPUT. PATIENT GIVEN ALBUMIN AND LASIX TODAY. TUBE FEEDS REINITIATED. NO SIGNS OF ACTIVE BLEEDING. NOSTRIL PLUGS REAMIN IN NARES BILATERALLY. FECAL MANAGEMENT SYSTEM IN PLACE. DID NOT PRONE PATIENT TODAY PER DR ORTEGA.
[2021-02-23] VITALS (138 sets, daily range): BP systolic 81–170; BP diastolic 46–99
--- NOTE | 2021-02-23 06:02 | NUR ---
PT NOT TOLERATING TURNS THIS SHIFT, TURNS TO LEFT WELL, BUT DOES NOT TOLERATE R SIDED TURNS. DIFFICULT TO SEDATE, RR INCREASING UP TO 40, PEAK PRESSURES 45, VARIABLE VOLUMES. PROPOFOL STARTED IN AN EFFORT TO CONTROL THESE READINGS, PT RR SYNCH WITH VENT AFTER STARTED PROPOFOL. VENT SETTINGS CHANGED PER RT AND JORDAN.
--- NOTE | 2021-02-23 09:27 | NUR ---
Nutrition: REC as appropriate, increase tube feeds to 45 mL/hr based on current propofol demands.
[2021-02-23 10:06] LABS: CALCIUM 8.7 mg/dL (8.5-10.1); POTASSIUM 3.7 mmol/L (3.5-5.1)
[2021-02-23 11:33] LABS: HEMATOCRIT 35.5 % (37.0-47.0); HEMOGLOBIN 11.2 gm/dL (12.0-15.0); MCHC 31.6 g/dL (28.0-37.0)
[2021-02-23 11:34] LABS: ABSOLUTE NEUTROPHILS 4.1 thou/uL (1.4-8.2); BASOPHILS 0.2 % (0.0-2.0); EOSINOPHILS 0.3 % (0.0-3.0); LYMPHOCYTES 5.9 % (24.0-44.0); MCH 29.1 pg (26.0-34.0); MCV 92.1 fL (80.0-100.0); MONOCYTES 7.6 % (1.0-8.0); RBC 3.85 mil/uL (4.20-5.00); RDW 15.7 % (10.5-14.5); WBC 4.8 thou/uL (4.0-11.0)
[2021-02-23 12:22] LABS: PLATELET COUNT 46 thou/uL (150-400)
--- NOTE | 2021-02-23 13:45 | NUR ---
discussed during am rounds, remains on vent, nutritional support. cont isolation, unable to visit with pt. will cont following as needed for dc needs. bedside nurse cont to visit with daughter royce.
--- NOTE | 2021-02-23 18:41 | NUR ---
PT IS NOT PROGRESSING TOWARDS DISCHARGE AT THIS TIME, PT HAD A TENSION PNEUMOTHORAX WHICH WAS INTERVENED BY . R CHEST TUBE WAS PLACED. PT'S FAMILY MEMBERS TWO DAUGHTERS CALLED NUMEROUS TIMES TODAY, UPATE WAS PROVIDED TWICE AT 0930 AND 1800. OT'S VENTILATOR/SEDATION STATUS WAS PROVIDED WELL NOTIFYING OF CRITICAL ICU STATUS AND ALSO DIFFICULT QUESTIONS WERE DEFERRED TO THE MD RN DOES NOT HAVE SCOPE OF PRACTICE TO SPEAK OF PROGNOSIS AND USCH. CVP MONITORING WAS INITATED TODAY WELL. TF TITRATED TO GOAL OF 30CC FROM 60. PT TOLERATING. VERSED GTT WAS STOPPED. PROPOFOL CONT FROM LAST NIGHT. PT STILL HAS THROMBOCYTOPENIA, PLT COUNT<50. [place] ET TO BE DC'D ON 02/25 PER MD NOTES. FAMILY MEMBERS INSTRUCTED TO CALL ANY TIME FOR UPDATES LONG RN IS AVAILABLE. IT WAS REEDUCATED THAT IF RN CANNOT COME TO THE PHONE IT'S D/T BUSSINES
[2021-02-24] VITALS (70 sets, daily range): BP systolic 87–136; BP diastolic 44–77
[2021-02-24 04:27] LABS: HCO3 33.2 mmol/L (22.0-26.0); PCO2 49.2 mmHg (35.0-45.0); PO2 69.3 mmHg (80.0-100.0); pH 7.447 (7.360-7.450); sO2 94.4 % (92.0-98.0)
--- NOTE | 2021-02-24 04:48 | NUR ---
SPOKE WITH DAUGHTERS AT BEGINNING OF SHIFT AND GAVE UPDATE. PT TOLERATING VENT, TOLERATING SLIGHT TURNS. CT PATENT, NO AIR LEAK, SEROSANGUINOUS DRAINAGE. OPENS EYES WITH SOME CARES, NOTE "SHIVERING" IN CHEST AND UPPER ARMS DURING SOME CARES, INTERMITTENT, ALSO NOTED THROUGH WINDOW WHILE NO ONE WAS TOUCHING PATIENT. NOT PROGRESSING TOWARD GOALS
[2021-02-24 05:19] LABS: MCH 29.7 pg (26.0-34.0); MCHC 32.4 g/dL (28.0-37.0)
[2021-02-24 05:21] LABS: HEMATOCRIT 32.2 % (37.0-47.0); HEMOGLOBIN 10.4 gm/dL (12.0-15.0); MCV 91.8 fL (80.0-100.0); PLATELET COUNT 31 thou/uL (150-400); RDW 15.6 % (10.5-14.5)
[2021-02-24 05:43] LABS: ALBUMIN 2.4 g/dL (3.4-5.0); CALCIUM 8.3 mg/dL (8.5-10.1); CREATININE 0.8 mg/dL (0.6-1.0); POTASSIUM 3.9 mmol/L (3.5-5.1); TOTAL BILIRUBIN 0.8 mg/dL (0.2-1.0); TOTAL PROTEIN 5.1 g/dL (6.4-8.2)
--- NOTE | 2021-02-24 09:52 | NUR ---
ASSUMED CARE AT 0700. PATIENT'S DAUGHTER, JOSE, CALLED AND WAS SPOKEN TO FROM [phone] AND SHE WAS UPDATED AND EDUCATED ON THE PATIENT'S CONDITION AND PLAN OF CARE.
[2021-02-24 10:55] LABS: ABSOLUTE NEUTROPHILS 2.5 thou/uL (1.4-8.2)
[2021-02-24 10:56] LABS: ANISOCYTOSIS 1+
[2021-02-24 10:59] LABS: LARGE PLATELETS OCCASIONAL
--- NOTE | 2021-02-24 11:53 | NUR ---
~40 MIN CONFERENCE W DTR CLEMENT PRESENT, DTR MARY & PT'S SISTER ROSALEE FACE TIMING. DR'Kwasi VICENTE & JOHN, PRIMARY RN Javon ALMONTE & THIS SUPERVISOR FISH BAIT PROCESSING PRESENT. LOTS OF ?'S RE:LACK OF PROGRESS/PROGRESS, EVENTS OF LAST FEW DAYS.LONG D/W BOTH PHYSICIANS RE:SAME. SHOWED CXR PROGRESSION TO ALL 3. SEEMED TO HAVE A LITTLE BETTER UNDERSTANDING p SEEING XRAYS. CLEMENT EXPRESSED THANKS FOR CARING FOR HER MOM, IS HAPPY W NSG CARES GIVEN & UPDATES. ENCOURAGED UPDATES THRU PHYSICIANS ONLY.--VW
--- NOTE | 2021-02-24 12:25 | NUR ---
ASSUMED CARE AT 0700. THIS RN SAT IN ON CONFERENCE BETWEEN DR. LOPEZ, DR. VICENTE, SUPERVISOR FILES JOSE, AND THE DAUGHTER OF THE PATIENT, JOSE, A SECOND DAUGHTER OF THE PATIENT, MARY, AND A SISTER OF THE PATIENT, ROSALEE. PHYSICIANS EXPLAINED TO THE FAMILY THE PATIENT'S CONDITION AND PLAN OF CARE. PHYSICIANS ADVISED THE FAMILY TO DIRECT QUESTIONS AT PHYSICIANS MORE THAN NURSES REGARDING THE PATIENT'S OVERALL CONDITION AND PROGRESSION. MEETING WAS FROM [phone] APPROXIMATELY.
[2021-02-25] VITALS (24 sets, daily range): BP systolic 99–131; BP diastolic 47–76
--- NOTE | 2021-02-25 06:00 | NUR ---
REMAINS INTUBATED AND SEDATED. FOLLOWS NO COMMANDS [place] NOT PROGRESSING TOWARD GOALS.
[2021-02-25 06:31] LABS: HEMOGLOBIN 9.9 gm/dL (12.0-15.0); WBC 2.9 thou/uL (4.0-11.0)
[2021-02-25 06:33] LABS: HEMATOCRIT 30.2 % (37.0-47.0); MCHC 32.8 g/dL (28.0-37.0); MCV 91.3 fL (80.0-100.0); PLATELET COUNT 48 thou/uL (150-400)
[2021-02-25 06:35] LABS: CREATININE 0.8 mg/dL (0.6-1.0); POTASSIUM 3.8 mmol/L (3.5-5.1)
[2021-02-25 10:11] LABS: ABSOLUTE NEUTROPHILS 2.2 thou/uL (1.4-8.2)
--- NOTE | 2021-02-25 10:56 | NUR ---
ASSUMED CARE AT 0700. SPOKE WITH PATIENT'S DAUGHTER, JOSE, FROM [phone] AND SHE WAS UPDATED AND EDUCATED ON THE PATIENT'S CONDITION AND PLAN OF CARE.
--- NOTE | 2021-02-25 11:46 | NUR ---
discussed during los and unite rounds. no anticipated dc over weekend. vent support, has chest tube. TF for nutritional support. + covid. will cont following as needed for dc needs. MD's met with daughter, pt sister and spoke with other daughter via speaker phone yesterday, updates medically provided.
--- NOTE | 2021-02-25 21:33 | NUR ---
This RN spoke to Kaylyn, patients daughter, at 2129. Updated on patient care and status. Plan to facetime shortly.
--- NOTE | 2021-02-25 23:52 | NUR ---
Patients daughter, Yolanda facetimed patient at 2300 for 15 minutes.
[2021-02-26] VITALS (23 sets, daily range): BP systolic 96–151; BP diastolic 51–76
[2021-02-26 03:20] LABS: ABSOLUTE NEUTROPHILS 2.6 thou/uL (1.4-8.2); HEMOGLOBIN 10.4 gm/dL (12.0-15.0); RDW 16.1 % (10.5-14.5)
[2021-02-26 03:23] LABS: BASOPHILS 0.1 % (0.0-2.0); EOSINOPHILS 0.3 % (0.0-3.0); HEMATOCRIT 32.2 % (37.0-47.0); LYMPHOCYTES 9.9 % (24.0-44.0); MCH 29.8 pg (26.0-34.0); MCHC 32.4 g/dL (28.0-37.0); MONOCYTES 9.2 % (1.0-8.0); PLATELET COUNT 46 thou/uL (150-400); POLYS 80.5 % (36.0-66.0); WBC 3.5 thou/uL (4.0-11.0)
--- NOTE | 2021-02-26 05:54 | NUR ---
Unable to weigh patient due to bed error.
--- NOTE | 2021-02-26 07:35 | NUR ---
Unable to wean patient down on any sedation. Patient grimaces and has positive cough and gag. Still requires heavy mechanical assistance and therefore is not progessing towards goals. Chest tube output slowing down.
[2021-02-26 16:33] LABS: HEMOGLOBIN 10.7 gm/dL (12.0-15.0); MCHC 32.7 g/dL (28.0-37.0); WBC 3.7 thou/uL (4.0-11.0)
[2021-02-26 16:35] LABS: HEMATOCRIT 32.8 % (37.0-47.0); MCH 30.2 pg (26.0-34.0); MCV 92.3 fL (80.0-100.0); RBC 3.55 mil/uL (4.20-5.00); RDW 16.4 % (10.5-14.5)
[2021-02-26 16:43] LABS: CALCIUM 8.5 mg/dL (8.5-10.1); CREATININE 0.8 mg/dL (0.6-1.0); POTASSIUM 4.4 mmol/L (3.5-5.1)
--- NOTE | 2021-02-26 20:21 | NUR ---
DAUGHTER CALLED NUMEROUS TIMES TODAY. SPOKE WITH DAUGHTER ON THE PHONE TWICE FOR PATIENT UPDATES. DAUGHTER NAME IS JOSE. MADE SURE TO LET DAUGHTER KNOW THAT IF THERE ARE ANY SUDDEN CHANGES IN PATIENT STATUS THAT SHE WILL BE NOTIFIED. PATIENT TOLERATING TUBE FEEDINGS. CONTINUES ON SEDATION, PROPOFOL, FENTANY AND VERSED. NO OUTPUT FROM CHEST TUBE. NO S/S OF BLEEDING.
[2021-02-27] VITALS (24 sets, daily range): BP systolic 92–135; BP diastolic 49–83
[2021-02-27 04:52] LABS: HEMOGLOBIN 9.7 gm/dL (12.0-15.0); RBC 3.28 mil/uL (4.20-5.00); WBC 2.9 thou/uL (4.0-11.0)
[2021-02-27 04:55] LABS: HEMATOCRIT 30.1 % (37.0-47.0); MCH 29.5 pg (26.0-34.0); MCHC 32.2 g/dL (28.0-37.0); MCV 91.6 fL (80.0-100.0); PLATELET COUNT 46 thou/uL (150-400); RDW 16.6 % (10.5-14.5)
[2021-02-27 05:02] LABS: ANION GAP < 0 mmol/L (7-16); BUN 33 mg/dL (7-18); CALCIUM 8.3 mg/dL (8.5-10.1); CHLORIDE 115 mmol/L (98-107); CO2 35 mmol/L (21-32); CREATININE 0.7 mg/dL (0.6-1.0); GLUCOSE 184 mg/dL (74-106); POTASSIUM 4.1 mmol/L (3.5-5.1); SODIUM 149 mmol/L (136-145)
--- NOTE | 2021-02-27 08:44 | NUR ---
9981 PATIENTHAD DAUGHTER UPDATED AND VIEW PT VIS IPAD, SHE VISITED WITH SIBLING AND PRAYED.
--- NOTE | 2021-02-27 08:46 | NUR ---
PATIENT REMIANS ON HIGH O2 OF 70%, UNABLE TO PROESS TOWARS GOAL OF DECEASING OXYGEN. RIGHT CHEST TUBE HAD NO OUTPUT, NO LEAK. TUBE FEED AT GOAL, LOW RESIDUAL, FMS REMAINS IN PLACE FOE LIQUID STOOL.
[2021-02-27 11:08] LABS: ABSOLUTE NEUTROPHILS 2.2 thou/uL (1.4-8.2); METAMYELOCYTES 1 %; NUCLEATED RBCS 1 /100WBC
[2021-02-27 11:12] LABS: ANISOCYTOSIS 1+
[2021-02-27 11:13] LABS: OVALOCYTES FEW
[2021-02-27 11:16] LABS: LARGE PLATELETS FEW
--- NOTE | 2021-02-27 13:51 | NUR ---
ASSUMED CARE AT 0700. PATIENT'S DAUGHTER, JOSE, CALLED FROM [phone] AND SHE WAS UPDATED AND EDUCATED ON THE PATIENT'S CONDITION AND PLAN OF CARE.
[2021-02-28] VITALS (24 sets, daily range): BP systolic 101–162; BP diastolic 45–74
--- NOTE | 2021-02-28 01:33 | NUR ---
FACE TIME WITH PATEINT DAUGHTER 684, BRYAN SPOKE TO BRYAN AND PRAYED, PATEINT SEDATED. DAUGHTER WAS GIVNE UPDATED, NPT CHANGE FROM TODAYS'S DECREASE IN O2 TO 55%.
[2021-02-28 04:53] LABS: HEMOGLOBIN 9.6 gm/dL (12.0-15.0); PLATELET COUNT 41 thou/uL (150-400); WBC 2.9 thou/uL (4.0-11.0)
[2021-02-28 04:55] LABS: ABSOLUTE NEUTROPHILS 1.9 thou/uL (1.4-8.2); BASOPHILS 0.5 % (0.0-2.0); EOSINOPHILS 2.1 % (0.0-3.0); HEMATOCRIT 29.6 % (37.0-47.0); LYMPHOCYTES 12.8 % (24.0-44.0); MCH 29.6 pg (26.0-34.0); MCHC 32.4 g/dL (28.0-37.0); MCV 91.3 fL (80.0-100.0); MONOCYTES 8.8 % (1.0-8.0); POLYS 75.8 % (36.0-66.0); RBC 3.24 mil/uL (4.20-5.00); RDW 16.7 % (10.5-14.5)
[2021-02-28 05:03] LABS: CALCIUM 8.3 mg/dL (8.5-10.1); CREATININE 0.7 mg/dL (0.6-1.0); POTASSIUM 4.4 mmol/L (3.5-5.1)
--- NOTE | 2021-02-28 05:46 | NUR ---
PATIENT MAINTAINS 55% FIO2 OVERNIGHT, OXYGEN SAT IN MID TO HIGH 90'S. UNABLE TO WEAN SEDATION AT THIS TIME. NO WHIP SAWYER THIS PAST NEWSPAPER EDITOR MANAGING. PROGRESS TOWARS GOALLS IS SLOW. UNABLE TO WEAN FORM VENT. AT THIS TIME., RT CHEST TUBE REMIAINS INTACT, NO AIR LEAK OBSERVED. FMT INTACT MINIMAL UNMEASURABLE OUT PUT. ADEQUATE URINE OUT. AFEBRIAL.
--- NOTE | 2021-02-28 11:26 | NUR ---
chart review. discussed during am rounds. she cont on vent, nutritional support, chest tube. noted family has been able to facetime with pt and pray during phone calls.
--- NOTE | 2021-02-28 12:57 | NUR ---
PATIENT'S DAUGHTER, JOSE, CALLED TWICE FROM [phone] AND [phone] AND SHE WAS UPDATED AND EDUCATED ON THE PATIENT'S CONDITION AND PLAN OF CARE BOTH TIMES.
[2021-03-01] VITALS (25 sets, daily range): BP systolic 93–141; BP diastolic 46–76
[2021-03-01 04:49] LABS: HEMATOCRIT 32.3 % (37.0-47.0); HEMOGLOBIN 10.3 gm/dL (12.0-15.0); MCH 29.3 pg (26.0-34.0); MCV 91.7 fL (80.0-100.0); RBC 3.52 mil/uL (4.20-5.00); RDW 16.8 % (10.5-14.5); WBC 3.9 thou/uL (4.0-11.0)
[2021-03-01 05:20] LABS: CALCIUM 8.4 mg/dL (8.5-10.1); CREATININE 0.6 mg/dL (0.6-1.0); POTASSIUM 4.7 mmol/L (3.5-5.1)
--- NOTE | 2021-03-01 06:38 | NUR ---
PT TOLERATING TURNS VERY WELL, VERY LIMITED NEUROLOGICAL RESPONSE, SPOKE WITH DAUGHTER APPROXIMATELY 2130 AND FACETIME WITH PT 2300. TOLERATING TF,
--- NOTE | 2021-03-01 18:08 | NUR ---
FIO2 WEANED TO 50% AND PEEP WEANED TO 10. DAUGHTER UPDATED WITH THESE CHANGES AROUND 1000. PLACED IN CONTACT ISOLATION FOR MRSA IN SPUTUM. CHEST TUBE DRESSING REMAINS INTACT, NO AIR LEAK PRESENT IN CHEST TUBE. 28CC OF SEROUS DRAINAGE MARKED IN CANISTER. PRIMARY TEAM MADE AWARE OF VAGINAL DISCHARGE. BRIEF IN PERSON VISIT FROM DAUGHTER AROUND 1630, UPDATED AND ALL QUESTIONS ANSWERED AT THAT TIME. PATIENT PROGRESSING TOWARDS GOALS OF CARE.
[2021-03-02] VITALS (24 sets, daily range): BP systolic 102–140; BP diastolic 53–84
[2021-03-02 05:34] LABS: HEMOGLOBIN 9.6 gm/dL (12.0-15.0); WBC 2.5 thou/uL (4.0-11.0)
[2021-03-02 05:37] LABS: HEMATOCRIT 29.9 % (37.0-47.0); MCH 29.2 pg (26.0-34.0); MCV 91.3 fL (80.0-100.0); RBC 3.27 mil/uL (4.20-5.00); RDW 16.8 % (10.5-14.5)
[2021-03-02 05:54] LABS: CALCIUM 8.1 mg/dL (8.5-10.1); CREATININE 0.6 mg/dL (0.6-1.0); POTASSIUM 4.3 mmol/L (3.5-5.1)
--- NOTE | 2021-03-02 09:44 | P ---
[facility] [place] [address] PROCEDURE REPORT Name: BORA LOCK Room #: 237-P [facility] IN M.R.#: [id number] Admission: 02/07/21 Attend Phys: Keren Longo MD Discharge: Date of : 67 Report #: [id number] THIS REPORT FOR: cc: Jairo Earl,Gurpreet Meng MD ~ DATE OF SERVICE: 02/21/2021 PROCEDURE PERFORMED: Upper endoscopy. HISTORY OF PRESENT ILLNESS: The patient is a 55-year-old female who is well known to me with respiratory failure, pneumonia, COVID positive, currently sedated on a ventilator in the ICU. OG was noted to have bright red blood aspiration. The patient also has gauze in her mouth due to possible bleeding from her oropharynx area. She has had a drop in her hemoglobin from 11.8 to 10.0. She has a history of thrombocytopenia. She is on octreotide, as she has a history of esophageal varices. No previous history of variceal bleed. She is also on PPI therapy. Plan is for upper endoscopy. DESCRIPTION OF PROCEDURE: The risks and benefits of the procedure were explained to the durable power of claim attorney, those risks including but not limited to bleeding, perforation and the risk of sedation. She understood these risks and gave informed consent. The procedure was performed at the bedside in the ICU. The patient again is already sedated. She is on Versed and is also on propofol. Next, using a standard Olympus upper endoscope, the scope was placed in the patient's mouth and advanced under direct vision through the esophagus, stomach, and into the second portion of the duodenum. There was bright red blood noted in the oropharynx with some clots. I was not able to discern the etiology of bleeding. As the scope was advanced into the esophagus, there were no signs of bleeding from the esophagus. In the distal esophagus, grade 1 varices with no stigmata of bleeding were noted. Overall, the gastric mucosa showed changes of portal hypertensive gastropathy. Again, no evidence of ulcerations or erosions. No evidence of blood in the stomach. The antrum was normal. The pylorus was normal and patent. The duodenal bulb was normal. In the duodenum first and second portion, a few small polyps were noted. I did not obtain biopsies, as the patient has low platelets at this time. No evidence of bleeding in the duodenum. At this point, the scope was then brought back up into the patient's oropharynx. Again, I was not able to tell where the bleeding has recently been coming from, from her oropharynx, but it appears it is from this area and not from her esophagus or stomach. At this point, the scope was then withdrawn and the procedure terminated. The patient tolerated the procedure well. IMPRESSION: 1. Bleeding, likely from the oropharynx. Etiology is unclear. Would recommend [address] [address] PROCEDURE REPORT Name: BORA LOCK Room #: 237-P [facility] IN M.R.#: [id number] Admission: 02/07/21 Attend Phys: Keren Longo MD Discharge: Date of : 67 Report #: [id number] ENT consult for further evaluation. 2. Grade 1 esophageal varices. No stigmata of recent bleeding. 3. Portal hypertensive gastropathy. No evidence of bleeding. RECOMMENDATIONS: Again, ENT consult, continue PPI therapy. We will discontinue octreotide at this time. Continue to monitor hemoglobin. Thank you for allowing me to participate in her care. <ELECTRONICALLY SIGNED> By: Gurpreet Ruiz MD 03/02/21 [id number] [id number] Gurpreet Ruiz MD /nt
[2021-03-03] VITALS (29 sets, daily range): BP systolic 85–128; BP diastolic 43–77
[2021-03-03 06:44] LABS: HEMOGLOBIN 9.6 gm/dL (12.0-15.0)
[2021-03-03 06:45] LABS: MCH 29.1 pg (26.0-34.0); RBC 3.3 mil/uL (4.20-5.00); RDW 17.2 % (10.5-14.5); WBC 2.7 thou/uL (4.0-11.0)
[2021-03-03 07:04] LABS: CALCIUM 8.3 mg/dL (8.5-10.1); CREATININE 0.5 mg/dL (0.6-1.0); POTASSIUM 3.9 mmol/L (3.5-5.1)
--- NOTE | 2021-03-03 09:32 | NUR ---
chart review. she remains on vent, TF for nutritional support. has chest tube. possible will need to see if she will requirer trach and peg?. bradly visited with her daughter royce via phone call. she stated that " been asking nursing about short term disability paper work for leif at [employer] and it has to be filled out and sent in by sunday, need to speak with "/daughter leif. cm active listen and provided education that would pass on message to have hospitalist call her. cm sent message to hospitalist. no anticipated dc over the weekend. will cont following as needed for dc needs.
[2021-03-03 12:28] LABS: BE(vivo) 3.7 mmol/L (-2 to +3); HCO3 28.6 mmol/L (22.0-26.0); PCO2 44.5 mmHg (35.0-45.0); pH 7.426 (7.360-7.450); sO2 87.3 % (92.0-98.0)
[2021-03-03 12:29] LABS: PO2 51.7 mmHg (80.0-100.0)
--- NOTE | 2021-03-03 18:47 | NUR ---
patient continuing. fio2 50% peep 8. possible plans for a trach and peg sunday per Dr. Christopher. Marginal urine output. continues on sedation. tolerating tube feedings. daughter came to visit today. no signs of bleeding.
[2021-03-04] VITALS (24 sets, daily range): BP systolic 92–119; BP diastolic 45–64
[2021-03-04 04:28] LABS: BE(vivo) 2.5 mmol/L (-2 to +3); HCO3 28.2 mmol/L (22.0-26.0); PCO2 48.8 mmHg (35.0-45.0); PO2 89.7 mmHg (80.0-100.0); sO2 96.6 % (92.0-98.0)
[2021-03-04 05:23] LABS: HEMATOCRIT 29.4 % (37.0-47.0); HEMOGLOBIN 9.6 gm/dL (12.0-15.0); MCH 29.6 pg (26.0-34.0); MCHC 32.6 g/dL (28.0-37.0); MCV 90.8 fL (80.0-100.0); RBC 3.24 mil/uL (4.20-5.00); RDW 16.9 % (10.5-14.5)
[2021-03-04 05:25] LABS: CALCIUM 7.9 mg/dL (8.5-10.1); CREATININE 0.6 mg/dL (0.6-1.0); POTASSIUM 4.1 mmol/L (3.5-5.1)
[2021-03-04 08:24] LABS: ALBUMIN 2.1 g/dL (3.4-5.0); DIRECT BILIRUBIN 0.2 mg/dL (<0.1-0.2); TOTAL BILIRUBIN 0.9 mg/dL (0.2-1.0); TOTAL PROTEIN 4.2 g/dL (6.4-8.2)
--- NOTE | 2021-03-04 12:04 | NUR ---
hospitalist completed pt short term disability paperwork for her job. discussed during am rounds, possible trach and peg on sunday? remains on vent, tf for nutritional support. no anticipated dc over the weekend.
--- NOTE | 2021-03-04 19:15 | NUR ---
PATIENT MAINTAINING AT PLAN OF CARE. NO SIGNIFICANT EVENTS TODAY. DAUGHTER JAHAIRA TO VISIT PATIENT TODAY. PLAN FOR POSSIBLE TRACH AND PEG SUNDAY 03/04
--- NOTE | 2021-03-04 22:09 | NUR ---
This RN spoke to daughter, Kaylyn at 2100 regarding patient status. Updated on care plan. Discussed for 5 minutes. Set up facetime on hospital iPad for Kaylyn and patient at 2130, facetimed for 15 minutes.
[2021-03-05] VITALS (22 sets, daily range): BP systolic 95–121; BP diastolic 45–73
[2021-03-05 04:43] LABS: HEMATOCRIT 31.4 % (37.0-47.0); HEMOGLOBIN 10.1 gm/dL (12.0-15.0); MCH 29.3 pg (26.0-34.0); MCHC 32.2 g/dL (28.0-37.0); MCV 91.2 fL (80.0-100.0); RBC 3.45 mil/uL (4.20-5.00); RDW 16.4 % (10.5-14.5); WBC 4.4 thou/uL (4.0-11.0)
[2021-03-05 04:47] LABS: CREATININE 0.6 mg/dL (0.6-1.0); POTASSIUM 4.2 mmol/L (3.5-5.1)
--- NOTE | 2021-03-05 06:12 | NUR ---
Unable to weigh patient due to bed error.
--- NOTE | 2021-03-05 15:55 | NUR ---
PT IS PROGRESSING TOWARDS DISCHARGE. CURRENT PLAN OF CARE INCLUDES TRACH PLACEMENT ON SUNDAY, PT IS SUSTAINING CURRENT VITAL SIGNS WHILE NOT MEDICATION IS TITRATED. PT IS TOLERATING TUBE FEEDING WELL AND HAVING OUTPUT AT FECAL MANAGEMENT SYSTEM/BHAKTA/C-TUBE. NO DRIP CHANGES WILL BE MADE BY THIS RN UNTIL AFTER TRACH IS PLACED. DTR HAD CALLED TWICE TO RETRIEVE INFO ON THE PT, ESPECIALLY REGARDING VENT SETTING. RN INFORMED THAT CHANGES TO PEEP FROM 10 TO 8 WAS MADE AND NO OTHER SIGNIFICANT CHANGES. CONTINUING TO MONITOR AND WILL UPDATE NECESSARY
--- NOTE | 2021-03-05 21:21 | NUR ---
This RN spoke to Kaylyn, daughter at 2114 for 5 minutes. Discussed patient status and plan for probable trach on Sunday. Will plan to facetime later tonight.
[2021-03-06] VITALS (25 sets, daily range): BP systolic 89–111; BP diastolic 38–55
--- NOTE | 2021-03-06 00:35 | NUR ---
This RN could not get a temperature on patient at 0000 assessment. This RN placed a rectal temperature probe. Patients temperature is well under the normal range. This RN placed the bear hugger on to initiate warming process. Will continue to monitor.
[2021-03-06 04:00] LABS: HEMATOCRIT 28.4 % (37.0-47.0); HEMOGLOBIN 9.2 gm/dL (12.0-15.0); MCH 29.4 pg (26.0-34.0); MCHC 32.4 g/dL (28.0-37.0); MCV 90.8 fL (80.0-100.0); RBC 3.13 mil/uL (4.20-5.00); RDW 17.1 % (10.5-14.5); WBC 2.3 thou/uL (4.0-11.0)
[2021-03-06 04:15] LABS: CALCIUM 7.8 mg/dL (8.5-10.1); CREATININE 0.6 mg/dL (0.6-1.0); POTASSIUM 4.3 mmol/L (3.5-5.1)
--- NOTE | 2021-03-06 16:58 | NUR ---
PT HAD STEADILY BEEN SATTING AT 94 THROUGHOUT THE WEEKEND THOUGH TODAY DURING NOON PT HAD UNEXPECTEDLY DROPPED TO 90 AND 89, RN INTERVENED AND NOTICED THAT THERE WAS A SMALL AIRLEAK IN THE CHEST TUBE CANNISTER, THOUGH IT IS NOT SIGNIFICANT AND HAS BEEN PRESENT THIS WEEKEND, RN REPLACED THE DRESSING AND CHECKED FOR THE INTEGRITY OF THE TUBING SYSTEM WHICH WAS COMPLETELY WITHIN NORMAL LIMITS. RN HAS BEEN TURNING THE PT STRICTLY TOWARDS THE L SIDE AND PT HAS BEEN SATTING AROUND 91 AT THIS POINT. SPOKE WITH REGARDING TOMORROWS PLANS, PT IS TO RECEIVE PEG/TRACH TOMORROW, TIME OF SURGERY IS UNKNOWN CONSENT STILL NEEDS TO BE OBTAINED. NO CHANGES TO DROP OR VENT SETTING HAS BEEN MADE. SURGEON AWARE OF OXYGENATION SITUATION. NO ACUTE PROCESSES FOR THE PT AT THIS TIME. RN CONTINUING TO MONITOR UNTIL THE END OF THIS SHIFT
[2021-03-07] VITALS (45 sets, daily range): BP systolic 85–112; BP diastolic 34–58
[2021-03-07 05:32] LABS: D-DIMER 0.24 ug/mLFEU (0.19-0.50); INR 1.1; PROTIME 11.9 Seconds (9.3-11.4)
[2021-03-07 05:33] LABS: ALBUMIN 2.2 g/dL (3.4-5.0); CREATININE 0.6 mg/dL (0.6-1.0); POTASSIUM 4.1 mmol/L (3.5-5.1); TOTAL BILIRUBIN 0.7 mg/dL (0.2-1.0); TOTAL PROTEIN 4.4 g/dL (6.4-8.2)
[2021-03-07 06:00] LABS: ABSOLUTE NEUTROPHILS 2.8 thou/uL (1.4-8.2); BASOPHILS 0.1 % (0.0-2.0); EOSINOPHILS 3.4 % (0.0-3.0); HEMATOCRIT 26.2 % (37.0-47.0); HEMOGLOBIN 8.5 gm/dL (12.0-15.0); LYMPHOCYTES 12.8 % (24.0-44.0); MCH 29.1 pg (26.0-34.0); MCHC 32.4 g/dL (28.0-37.0); MCV 89.9 fL (80.0-100.0); MONOCYTES 11.2 % (1.0-8.0); PLATELET COUNT 58 thou/uL (150-400); POLYS 72.5 % (36.0-66.0); RBC 2.92 mil/uL (4.20-5.00); RDW 16.3 % (10.5-14.5); WBC 3.8 thou/uL (4.0-11.0)
--- NOTE | 2021-03-07 12:19 | NUR ---
chart review. discussed during los and am rounds. remains on vent. she to be going for trach and peg around noon today, bedside nurse set up face time visit with daughter this am. will cont following as needed for dc needs. after trach peg, will need dr to discuss ltac and will send out referral after speaking with her daughter royce. will cont following as needed for dc needs
--- NOTE | 2021-03-07 16:42 | NUR ---
ASSUMED PATIENT CARE AT 0700. NPO FOR TRACH AND PEG TODAY. DAUGHTER FACETIMED VIA IPAD PRIOR TO SURGERY. PATIENT TRANSPORTED TO OR AT 1217 BY OR TEAM. ARRIVED BACK TO ROOM AT 1355 POST OP. ETT AND OG REMOVED IN OR. NEW TRACH (7.0 SHILEY XLT, CUFFED) AND PEG PLACEMENT. VITAL SIGNS STABLE POSTOP. DAUGHTER CALLED AND UPDATED THAT PATIENT WAS BACK FROM SURGERY. TRACH AND PEG SITE REMAIN WITHIN NORMAL LIMITS.
[2021-03-07 17:47] LABS: BE(vivo) 3.4 mmol/L (-2 to +3); HCO3 28.6 mmol/L (22.0-26.0); PCO2 46.6 mmHg (35.0-45.0); pH 7.406 (7.360-7.450)
[2021-03-08] VITALS (26 sets, daily range): BP systolic 88–127; BP diastolic 40–73
--- NOTE | 2021-03-08 04:38 | NUR ---
TRACH SITE WITH MINIMAL DRAINAGE, PT TOLERATING VENT WELL, ABLE TO TITRATE SEDATION DOWN SLIGHTLY, PT CONTINUES TO BREATHE WITH VENTILATOR. OPENS EYES SPONTANEOUSLY BUT DOES NOT TRACK RN AND DOES NOT APPEAR TO CONSISTENTLY BLINK TO NOXIOUS STIMULI. TOLERATING TURNS. R CT SITE C/D/I. PEG SITE CLEAN AND DRY, TOLERATING TUBE FEEDS, INCREASED PER DR. BRISENO
[2021-03-08 04:58] LABS: BE(vivo) 4.1 mmol/L (-2 to +3); HCO3 28.4 mmol/L (22.0-26.0); PCO2 41.3 mmHg (35.0-45.0); PO2 74.3 mmHg (80.0-100.0); pH 7.455 (7.360-7.450); sO2 95.6 % (92.0-98.0)
[2021-03-08 05:11] LABS: HEMATOCRIT 28.7 % (37.0-47.0); HEMOGLOBIN 9.3 gm/dL (12.0-15.0); MCH 29.5 pg (26.0-34.0); MCHC 32.5 g/dL (28.0-37.0); MCV 90.8 fL (80.0-100.0); RBC 3.16 mil/uL (4.20-5.00); RDW 16.8 % (10.5-14.5); WBC 2.9 thou/uL (4.0-11.0)
[2021-03-08 05:33] LABS: CALCIUM 8.6 mg/dL (8.5-10.1); CREATININE 0.6 mg/dL (0.6-1.0); POTASSIUM 3.8 mmol/L (3.5-5.1)
--- NOTE | 2021-03-08 18:41 | NUR ---
ASSUMED PATIENT CARE AT 0700. INCREASED WORK OF BREATHING IN THE AFTERNOON. DR. VICENTE NOTIFIED AND AT BEDSIDE. INCREASED PROPOFOL PER. DR. VICENTE AND CHEST XRAY OBTAINED. LA PAPERWORK DELIVERED TO DR. LOPEZ'S OFFICE. DAUGHTER UPDATED MULTIPLE TIMES DAY. PATIENT NOT PROGRESSING TOWARDS GOALS OF CARE.
[2021-03-09] VITALS (50 sets, daily range): BP systolic 81–148; BP diastolic 31–80
--- NOTE | 2021-03-09 05:37 | NUR ---
SEDATION INCREASED DUE TO INCREASED WORK OF BREATHING - USE OF ACCESSORY MUSCLES, TACHYPNEA AND INCREASE HR. BP LOW, DECREASED SEDATION SLIGHTLY, BUT BP CONTINUES TO BE LOW, STARTED LEVO PER DR VICENTE ORDER FOR BP PARAMETERS. TOLERATES TURNS WELL, NO PURPOSEFUL MOVEMENT NOTED
[2021-03-09 05:44] LABS: HEMATOCRIT 32.9 % (37.0-47.0); HEMOGLOBIN 10.4 gm/dL (12.0-15.0); MCH 29.3 pg (26.0-34.0); MCHC 31.7 g/dL (28.0-37.0); MCV 92.5 fL (80.0-100.0); RBC 3.56 mil/uL (4.20-5.00); RDW 17.3 % (10.5-14.5); WBC 9.5 thou/uL (4.0-11.0)
[2021-03-09 06:20] LABS: CALCIUM 8.6 mg/dL (8.5-10.1); CREATININE 0.6 mg/dL (0.6-1.0); POTASSIUM 3.6 mmol/L (3.5-5.1)
--- NOTE | 2021-03-09 12:19 | NUR ---
discussed during los, possible ready for dc early next week. and am round. cm reached out to daughter royce rt [facility] in area ([facility]). " ok we live in [place], i will look these up and call you with choice tomorrow. will cont following as needed for dc need. will need auth from [facility] as well before dc to [facility], will send referral after family choice location.
[2021-03-09 14:06] LABS: URINE BILIRUBIN NEGATIVE (Negative); URINE BLOOD TRACE (Negative); URINE CLARITY CLEAR; URINE COLOR YELLOW; URINE GLUCOSE-RANDOM* NEGATIVE (Negative); URINE KETONES NEGATIVE (Negative); URINE NITRITE-REFLEX NEGATIVE (Negative); URINE PROTEIN (DIPSTICK) NEGATIVE (Negative); URINE UROBILINOGEN 0.2 E.U./dl (0.2-1.0)
[2021-03-09 14:11] LABS: URINE LEUKOCYTES-REFLEX 1+ (Negative)
[2021-03-09 14:15] LABS: CASTS None Seen /LPF (None Seen); SQUAMOUS None Seen /LPF (0-3); URINE WBC-REFLEX 6-15 Few /HPF (0-5)
[2021-03-09 14:16] LABS: BACTERIA-REFLEX 1-9 Few /HPF (None Seen); URINE RBC 0-2 Rare /HPF (0-2)
[2021-03-09 14:18] LABS: YEAST-REFLEX Present (None Seen)
[2021-03-09 16:45] LABS: CRYSTALS None Seen /LPF (None Seen)
[2021-03-10] VITALS (24 sets, daily range): BP systolic 101–132; BP diastolic 47–64
[2021-03-10 05:19] LABS: HEMATOCRIT 24.9 % (37.0-47.0); MCH 29.2 pg (26.0-34.0); MCHC 31.8 g/dL (28.0-37.0); MCV 91.8 fL (80.0-100.0); RBC 2.72 mil/uL (4.20-5.00); RDW 17.7 % (10.5-14.5)
[2021-03-10 05:55] LABS: HEMOGLOBIN 7.9 gm/dL (12.0-15.0)
[2021-03-10 05:56] LABS: WBC 1.9 thou/uL (4.0-11.0)
[2021-03-10 05:59] LABS: CALCIUM 8.5 mg/dL (8.5-10.1); CREATININE 0.5 mg/dL (0.6-1.0); POTASSIUM 3.5 mmol/L (3.5-5.1)
[2021-03-10 07:57] LABS: HEMATOCRIT 26.1 % (37.0-47.0); HEMOGLOBIN 8.4 gm/dL (12.0-15.0); MCH 29.5 pg (26.0-34.0); MCHC 32.2 g/dL (28.0-37.0); MCV 91.6 fL (80.0-100.0); RBC 2.85 mil/uL (4.20-5.00); RDW 17.7 % (10.5-14.5); WBC 2.1 thou/uL (4.0-11.0)
--- NOTE | 2021-03-10 13:46 | NUR ---
spoke with daughter royce, referral sent to [facility] and 2nd to [facility]. will cont following as needed for dc needs. discussed during los, possible dc sunday or early next week.
[2021-03-11] VITALS (24 sets, daily range): BP systolic 106–141; BP diastolic 45–76
[2021-03-11 05:13] LABS: ALBUMIN 2.6 g/dL (3.4-5.0); CALCIUM 8.7 mg/dL (8.5-10.1); CREATININE 0.5 mg/dL (0.6-1.0); POTASSIUM 3.3 mmol/L (3.5-5.1); TOTAL BILIRUBIN 1.3 mg/dL (0.2-1.0); TOTAL PROTEIN 4.8 g/dL (6.4-8.2)
--- NOTE | 2021-03-11 08:02 | NUR ---
ASSUMED CARE AT 1900. SPOKE W/PT'S DTR TWICE OVERNIGHT, ONCE ABOUT 2019 AND AGAIN ABOUT 0015; NO SIGNIFCANT CHANGES OVERNIGHT. CHANGED BHAKTA DRAIN BAG D/T LEAKAGE. FMS LEAKING HEAVILY OVERNIGHT, CHANGED ENTIRE FMS SYSTEM; SM AMT BLOOD AFTER INSERTING NEW SYSTEM; COPIOUS OUTPUT OVERNIGHT. NO OTHER CONCERNS, SHIFT REPORT GIVEN 0700.
--- NOTE | 2021-03-11 13:56 | NUR ---
chart review. possible ready for lt[facility] on sunday, daughter royce leaning [facility]. updates [facility] to [facility]. will cont following as needed for dc needs.
--- NOTE | 2021-03-11 16:51 | NUR ---
PATIENT PROGRESSING TOWARDS PLAN OF CARE. PATIENT WEANED TO 40% FIO2. PATIENT CONTINUES TO ONLY OPEN EYES SPONTANEOUSLY NO TRACKING WITH EYE MOVEMENTS. SEDATION REMAINS OFF. TOLERATING TUBE FEEDING WELL.
[2021-03-12] VITALS (24 sets, daily range): BP systolic 106–167; BP diastolic 60–89
[2021-03-12 02:06] LABS: HBsAG-EMPLOYEE EXPOSURE Negative (Negative); HCV AB-EMPLOYEE EXPOSURE <0.1 (0.0-0.9)
[2021-03-12 08:09] LABS: ABSOLUTE NEUTROPHILS 2.5 thou/uL (1.4-8.2); BASOPHILS 0.4 % (0.0-2.0); EOSINOPHILS 2.7 % (0.0-3.0); HEMATOCRIT 27.9 % (37.0-47.0); HEMOGLOBIN 9.1 gm/dL (12.0-15.0); LYMPHOCYTES 18.5 % (24.0-44.0); MCH 29.7 pg (26.0-34.0); MCHC 32.5 g/dL (28.0-37.0); MCV 91.3 fL (80.0-100.0); MONOCYTES 7.9 % (1.0-8.0); POLYS 70.5 % (36.0-66.0); RBC 3.06 mil/uL (4.20-5.00); RDW 17.7 % (10.5-14.5); WBC 3.6 thou/uL (4.0-11.0)
--- NOTE | 2021-03-12 08:10 | NUR ---
ASSUMED CARE AT 1900. SPOKE TO DTR ABOUT 2039 AND AGAIN ABOUT 2344, THEN ASSISTED HER TO FACETIME PT. INCREASED, COPIOUS OUTPUT FROM FMS OVERNIGHT. REMOVED PT'S EARRINGS AND PUT IN ZIPLOCK BAG ON COUNTER BY CARDS; RIGHT EAR WAS DISCOLORED/RED FROM EARRING AND HAIR COVERING PRESSING INTO IT. NO OTHER CONCERNS, SHIFT REPORT GIVEN 0700.
[2021-03-12 08:20] LABS: ALBUMIN 2.7 g/dL (3.4-5.0); CALCIUM 8.7 mg/dL (8.5-10.1); CREATININE 0.5 mg/dL (0.6-1.0); POTASSIUM 3.1 mmol/L (3.5-5.1); TOTAL BILIRUBIN 1.3 mg/dL (0.2-1.0); TOTAL PROTEIN 4.8 g/dL (6.4-8.2)
[2021-03-12 08:46] LABS: PLATELET COUNT 29 thou/uL (150-400)
[2021-03-12 08:47] LABS: ANISOCYTOSIS 1+; OVALOCYTES FEW
--- NOTE | 2021-03-12 18:36 | NUR ---
PATIENT PROGRESSING TOWARDS DISMISSAL GOALS. PATIENT TEST NEGATIVE FOR CDIFF. TOLERATING TUBE FEEDINGS. ADEQUATE URINE OUTPUT. PATIENT DAUGHTER JOSE AT BEDSIDE TODAY TO VISIT. PATIENT WAS ABLE TO NOD HER HEAD. STILL CONTINUES TO NOT TRACK OR MOVE SPONTANEOUSLY. PATIENT FECAL MANAGMENT SYSTEM WAS ATTEMPTED 3 TIMES FOR PLACMENT BUT BULB WOULD NOT STAY IN PLACE AND CONTINUE TO POP OUT.
[2021-03-13] VITALS (24 sets, daily range): BP systolic 116–157; BP diastolic 60–81
[2021-03-13 04:49] LABS: ALBUMIN 2.9 g/dL (3.4-5.0); CALCIUM 8.7 mg/dL (8.5-10.1); CREATININE 0.5 mg/dL (0.6-1.0); PHOSPHORUS 2.4 mg/dL (2.6-4.7); POTASSIUM 3.6 mmol/L (3.5-5.1)
[2021-03-13 06:19] LABS: ABSOLUTE NEUTROPHILS 3.8 thou/uL (1.4-8.2); BASOPHILS 0.3 % (0.0-2.0); EOSINOPHILS 0.5 % (0.0-3.0); HEMATOCRIT 27.9 % (37.0-47.0); LYMPHOCYTES 11.9 % (24.0-44.0); MCH 29.5 pg (26.0-34.0); MCHC 32.2 g/dL (28.0-37.0); MCV 91.6 fL (80.0-100.0); MONOCYTES 8.5 % (1.0-8.0); POLYS 78.8 % (36.0-66.0); RBC 3.05 mil/uL (4.20-5.00); RDW 17.7 % (10.5-14.5); WBC 4.8 thou/uL (4.0-11.0)
--- NOTE | 2021-03-13 06:25 | NUR ---
RETAPE THE CHEST TUBE ENTRANCE. Z GUARD TO L/R HIP WOUNDS. MULTIPLE BOUTS OF FECAL INCONTINENCE OVERNIGHT. BHAKTA IN PLACE WITH GOOD OUTPUT. CHEST TUBE PRODUCED 250ML OUT. PEG TUBE IN PLACE ALLOWING VITAL HP AT 45. NOTE FROM COMMUNICATIONS MEDIA PROFESSOR STATES THAT WHEN PROPOFOL IS DC'D TO MOVE TUBE FEEDING TO 60ML/HR. I WILL RELAY THIS TO AM NURSE. FALL AND ISOLATION PRECAUTIONS IN PLACE. VENT FIO2 SETTING LOWERED TO 30% AND PT TOLERATING WELL AND 02 SATS STILL IN 90'S.
[2021-03-13 09:55] LABS: ANISOCYTOSIS 1+; PLATELET COUNT 30 thou/uL (150-400)
--- NOTE | 2021-03-13 18:12 | NUR ---
ASSUMED CARE AT 0700. PATIENT REMAINS ON 35% FIO2 AND 8 OF PEEP THROUGHOUT DAY. MULTIPLE EPISODES OF DIARRHEA, PRN MEDICATION GIVEN. PATIENT IS SHAKING HEAD YES AND NO TO QUESTIONS APPROPRIATELY AND COMMUNICATING WITH MOUTH MOVEMENTS. PATIENT IS NOT MOVING ANY OF HER EXTREMITIES. DAUGHTER UPDATED OVER THE PHONE THIS MORNING. SISTER AND NIECE AND BEDSIDE VISITING. PATIENT PROGRESSING TOWARDS GOALS OF CARE.
[2021-03-14] VITALS (12 sets, daily range): BP systolic 127–160; BP diastolic 62–86
--- NOTE | 2021-03-14 06:51 | NUR ---
Received pt. on vent at 30% rate of 24. RT adjusted rate to 18 around MN then titrated FIO2 to 40% since O2 sat 88%. Suctioned prn. Repositioned for comfort. She nods head to questions and follows commands. Daughter called to get an update on pt. Tube feeding infusing. Pt. incontinent of large loose bm x3. Complete bed bath given. Z guard applied to buttocks. SCD's in place.
[2021-03-14] MEDS ORDERED: IPRAT-ALBUT 0.5-3 ML INH (08:14)
[2021-03-14] MEDS ORDERED: ENOXAPARIN60 MG/0.1 SUBQ (08:14)
[2021-03-14] MEDS ORDERED: ACETYLCYST200 MG/1 M INH (08:15)
[2021-03-14] MEDS ORDERED: AKWA TEARS OIN3.5 GM OPHTHALMIC (08:15)
[2021-03-14] MEDS ORDERED: DIPHENOXYLATE W60 M1 PER TUBE (08:15)
[2021-03-14] MEDS ORDERED: PERIDEX 0.12%473 M1 MUCOUS MEM (08:15)
[2021-03-14] MEDS ORDERED: LANTUS SUBQ (08:16)
[2021-03-14] MEDS ORDERED: FLORANEX GRANU1 EACH PER TUBE (08:16)
[2021-03-14] MEDS ORDERED: PREDNISONE 20 M20 MG PO (08:17)
[2021-03-14] MEDS ORDERED: LEVOFLOXACIN750 MG PO (08:18)
--- NOTE | 2021-03-14 09:20 | NUR ---
dc to [facility], [facility] to transport. spoke with daughter royce, cont education on LTAC, location and phone number. dc orders to be faxed to [phone], bedside nurse to call report to [phone]. send cc with her to [facility]. us making cc for icu.
[2021-03-14 10:54] LABS: HEMATOCRIT 25.9 % (37.0-47.0); HEMOGLOBIN 8.3 gm/dL (12.0-15.0); MCH 29.5 pg (26.0-34.0); MCHC 32.2 g/dL (28.0-37.0); MCV 91.4 fL (80.0-100.0); RBC 2.83 mil/uL (4.20-5.00); RDW 17.9 % (10.5-14.5); WBC 5.4 thou/uL (4.0-11.0)
--- NOTE | 2021-03-14 10:54 | NUR ---
ATTEMPTED TO CALL REPORT BUT THE NURSE IS NOT AVAILABLE
--- NOTE | 2021-03-14 12:00 | NUR ---
1120 REPORT CALLED TO NURSE AT [facility]. 1155 PATIENT DISCHARGED TO [facility]IA [facility]. REPORT GIVEN TO PARAMEDICS. BELONGINGS GIVEN TO DAUGHTER, JOSE.
== END 2021-03-14 11:55 | DRG 4 ==
LOC: ER 10:59 → 3W 13:39 → ICU 13:39 → EROBS 13:39 → 3W 19:54 → ICU 02-09 18:53
PROVIDERS: Emergency Medicine; Hospitalist; Internal Medicine; Internal Medicine Hematology & Oncology; Internal Medicine Pulmonary Disease; Pediatrics; Specialist; Surgery; ADMIT Internal Medicine; ATTEND Internal Medicine
PROC: XW033E5 Introduction of Remdesivir Anti-infective into Peripheral Vein, Percutaneous Approach, New Technology Group 5 (ICD-10-PCS; 2021-02-08)
PROC: 5A0935A Assistance with Respiratory Ventilation, Less than 24 Consecutive Hours, High Flow/Velocity Cannula (ICD-10-PCS; 2021-02-09)
PROC: 5A09357 Assistance with Respiratory Ventilation, Less than 24 Consecutive Hours, Continuous Positive Airway Pressure (ICD-10-PCS; 2021-02-09)
PROC: 5A0935A Assistance with Respiratory Ventilation, Less than 24 Consecutive Hours, High Flow/Velocity Cannula (ICD-10-PCS; 2021-02-10)
PROC: 5A09357 Assistance with Respiratory Ventilation, Less than 24 Consecutive Hours, Continuous Positive Airway Pressure (ICD-10-PCS; 2021-02-10)
PROC: 02HV33Z Insertion of Infusion Device into Superior Vena Cava, Percutaneous Approach (ICD-10-PCS; 2021-02-11)
PROC: 5A09357 Assistance with Respiratory Ventilation, Less than 24 Consecutive Hours, Continuous Positive Airway Pressure (ICD-10-PCS; 2021-02-11)
PROC: 5A0935A Assistance with Respiratory Ventilation, Less than 24 Consecutive Hours, High Flow/Velocity Cannula (ICD-10-PCS; 2021-02-11)
PROC: 5A09457 Assistance with Respiratory Ventilation, 24-96 Consecutive Hours, Continuous Positive Airway Pressure (ICD-10-PCS; 2021-02-12)
PROC: 0BH17EZ Insertion of Endotracheal Airway into Trachea, Via Natural or Artificial Opening (ICD-10-PCS; principal; 2021-02-13)
PROC: 5A1955Z Respiratory Ventilation, Greater than 96 Consecutive Hours (ICD-10-PCS; principal; 2021-02-13)
PROC: 0DJ08ZZ Inspection of Upper Intestinal Tract, Via Natural or Artificial Opening Endoscopic (ICD-10-PCS; 2021-02-21)
PROC: 0W9930Z Drainage of Right Pleural Cavity with Drainage Device, Percutaneous Approach (ICD-10-PCS; 2021-02-23)
PROC: 30233N1 Transfusion of Nonautologous Red Blood Cells into Peripheral Vein, Percutaneous Approach (ICD-10-PCS; 2021-03-06)
PROC: 0B113F4 Bypass Trachea to Cutaneous with Tracheostomy Device, Percutaneous Approach (ICD-10-PCS; 2021-03-07)
PROC: 0DH63UZ Insertion of Feeding Device into Stomach, Percutaneous Approach (ICD-10-PCS; 2021-03-07)
DX: A41.9 Sepsis, unspecified organism (principal); U07.1 COVID-19; J12.82 Pneumonia due to coronavirus disease 2019; J80 Acute respiratory distress syndrome; J15.9 Unspecified bacterial pneumonia; R65.21 Severe sepsis with septic shock; J93.0 Spontaneous tension pneumothorax; C18.9 Malignant neoplasm of colon, unspecified; D61.818 Other pancytopenia; Z68.43 Body mass index [BMI] 50.0-59.9, adult; M31.9 Necrotizing vasculopathy, unspecified; I42.9 Cardiomyopathy, unspecified; D68.59 Other primary thrombophilia; E46 Unspecified protein-calorie malnutrition; J98.19 Other pulmonary collapse; E87.0 Hyperosmolality and hypernatremia; K76.6 Portal hypertension; I85.00 Esophageal varices without bleeding; E86.0 Dehydration; E78.5 Hyperlipidemia, unspecified; K22.8 Other specified diseases of esophagus; R04.0 Epistaxis; K31.89 Other diseases of stomach and duodenum; K31.7 Polyp of stomach and duodenum; E11.9 Type 2 diabetes mellitus without complications; I10 Essential (primary) hypertension; R74.01 Elevation of levels of liver transaminase levels; R16.1 Splenomegaly, not elsewhere classified; G47.33 Obstructive sleep apnea (adult) (pediatric); D69.6 Thrombocytopenia, unspecified; E66.01 Morbid (severe) obesity due to excess calories; I95.2 Hypotension due to drugs; K74.60 Unspecified cirrhosis of liver; Z92.21 Personal history of antineoplastic chemotherapy; Z99.81 Dependence on supplemental oxygen; Z92.3 Personal history of irradiation; Z93.3 Colostomy status; Z86.73 Personal history of transient ischemic attack (TIA), and cerebral infarction without residual deficits; Z90.49 Acquired absence of other specified parts of digestive tract; Z86.718 Personal history of other venous thrombosis and embolism; Z86.711 Personal history of pulmonary embolism; Z79.899 Other long term (current) drug therapy; Z79.84 Long term (current) use of oral hypoglycemic drugs; Z88.5 Allergy status to narcotic agent; Z88.8 Allergy status to other drugs, medicaments and biological substances
CPT/HCPCS: 10078; 10879; 50101; 50386; 50403; 50455; 56525; 56526; 62110; 62900; 65040; 85076

== ENCOUNTER → 2021-07-22 | Outpatient (CLI) | payer OTHER ==
[~2021-07-22] MED LIST changes: +ACETYLCYST200 MG/1 M INH; +AKWA TEARS OIN3.5 GM OPHTHALMIC; +DIPHENOXYLATE W60 M1 PER TUBE; +ENOXAPARIN60 MG/0.1 SUBQ; +FLORANEX GRANU1 EACH PER TUBE; +HYDROCODON-ACE1 EAC7 PO; +IPRAT-ALBUT 0.5-3 ML INH; +LANTUS SUBQ; +LEVOFLOXACIN750 MG PO; +PERIDEX 0.12%473 M1 MUCOUS MEM; +PREDNISONE 20 M20 MG PO
== END ==
LOC: ULTRA 15:27
PROVIDERS: ATTEND Nurse Practitioner
DX: M79.89 Other specified soft tissue disorders (principal); M79.662 Pain in left lower leg

== ENCOUNTER → 2021-07-29 | Outpatient (CLI) | payer OTHER | LOC: MRI 09:26 | PROVIDERS: ATTEND Nurse Practitioner | DX: M19.072 Primary osteoarthritis, left ankle and foot (principal); R22.42 Localized swelling, mass and lump, left lower limb ==

== ENCOUNTER → 2021-09-26 | Outpatient (CLI) | payer OTHER | LOC: RAD 14:19 | PROVIDERS: ATTEND Internal Medicine Pulmonary Disease | DX: I51.7 Cardiomegaly (principal); R06.02 Shortness of breath; R06.00 Dyspnea, unspecified ==